=== PATIENT | female | born 1950 | race American Indian/Alaskan Native ===

== ENCOUNTER 2018-12-30 16:56 | Emergency (ER) | payer OTHER ==
[2018-12-30 17:07] VITALS: BP 178/76
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
[2018-12-30] MEDS ORDERED: NORCO 5/325 PO ONE (17:56)
[2018-12-30] MEDS ORDERED: BOOSTRIX IM ONE (17:56)
--- NOTE | 2018-12-30 18:13 | Cat Scan Report ---
PROCEDURE: CT HEAD/BRAIN WO CON TECHNIQUE: Axial helical imaging through the skull base to the vertex. HISTORY: head/facial pain COMPARISONS: CT face also performed today FINDINGS: There is no evidence of an acute intracranial process, intracranial hemorrhage or mass effect. The ventricles are normal size. There is atherosclerotic vascular calcification of the internal carotid arteries bilaterally and left vertebral artery at the skull base. The visualized portions of the orbits, paranasal and mastoid sinuses are unremarkable. The bony structures are unremarkable. IMPRESSION: 1. No evidence of an acute intracranial process, intracranial hemorrhage or mass effect. This document is electronically signed by Catrina Gomez MD., December 30 2018 06:11:15 PM ET
--- NOTE | 2018-12-30 18:18 | Cat Scan Report ---
PROCEDURE: CT FACIAL BONES WO CON TECHNIQUE: Axial helical imaging through the face with sagittal and coronal reformatted images obtain ed. HISTORY: FALL COMPARISONS: Head CT also performed today FINDINGS: There is no evidence of fracture. The paranasal and mastoid sinuses are unremarkable. The nasal septum is midline. The orbital contents are unremarkable. There is atherosclerotic vascular calcification of the carotid bifurcation bilaterally. IMPRESSION: 1. No evidence of facial fracture. 2. Atherosclerotic vascular calcification carotid bifurcation bilaterally. This document is electronically signed by Catrina Gomez MD., December 30 2018 06:16:28 PM ET
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
== END 2018-12-30 19:40 | disposition home or self-care (01) ==
LOC: ED 16:56
DX: S01.511A Laceration without foreign body of lip, initial encounter (principal); I10 Essential (primary) hypertension; E11.9 Type 2 diabetes mellitus without complications; W01.118A Fall on same level from slipping, tripping and stumbling with subsequent striking against other sharp object, initial encounter; Y93.89 Activity, other specified; Y92.89 Other specified places as the place of occurrence of the external cause; Y99.8 Other external cause status
CPT/HCPCS: 70450; 70486; 90471; 90715

== ENCOUNTER 2021-03-05 08:35 | Emergency (ER) | payer MEDICARE, OTHER ==
[2021-03-05 09:04] LABS: Basophils # (Auto) 0.1 K/mm3 (0.0-0.1); Basophils % (Auto) 1.3 % (0.0-1.8); Eosinophils # (Auto) 0.3 K/mm3 (0.0-0.4); Eosinophils % (Auto) 3.8 % (0.0-4.3); Hematocrit 35.1 % (30.3-42.9); Hemoglobin 11.6 gm/dl (10.1-14.3); Lymphocytes % (Auto) 23.5 % (13.4-35.0); Mean Corpuscular HGB Conc 33 % (30-34); Mean Corpuscular Volume 84 fl (79-97); Monocytes # (Auto) 1.2 K/mm3 (0.0-0.8); Monocytes % (Auto) 14.4 % (0.0-7.3); Platelet Count 374 K/mm3 (140-440); Red Blood Count 4.16 M/mm3 (3.65-5.03); Red Cell Distribution Width 14.8 % (13.2-15.2)
[2021-03-05 09:28] LABS: Alanine Aminotransferase 15 units/L (7-56); Albumin 3.6 g/dL (3.9-5); BUN/Creatinine Ratio 18; Blood Urea Nitrogen 23 mg/dL (7-17); Calcium 9.6 mg/dL (8.4-10.2); Hemolysis Index 18
--- NOTE | 2021-03-05 09:35 | XRay Report ---
XR chest routine 2V INDICATION / CLINICAL INFORMATION: cp. COMPARISON: 05/07/2012 FINDINGS: SUPPORT DEVICES: None. HEART /PULMONARY VASCULATURE: No significant abnormality. LUNGS / PLEURA: No significant pulmonary or pleural abnormality. No pneumothorax. ADDITIONAL FINDINGS: Moderate multilevel thoracolumbar spondylosis, greatest in the lumbar spine. IMPRESSION: 1. No acute findings. Signer Name: Fran Mallory MD Signed: 03/05/2021 9:30 AM Workstation Name: [id number]
--- NOTE | 2021-03-05 10:42 | Emergency Department Report ---
ED General Adult HPI - General Chief complaint: Chest Pain Stated complaint: COUGH/CHEST PAIN Time Seen by Provider: 03/05/21 10:01 Source: patient Mode of arrival: Ambulatory Limitations: No Limitations - History of Present Illness Initial comments: 70-year-old female, history of CVA, hypertension, diabetes, chronic lower back pain, presents to the ED with cough, chest pain, body aches, congestion, sore throat, diarrhea. Patient states symptoms began 1 week ago. She denies fever, loss of smell or taste. She denies any known contact with anyone who has tested positive for COVID-19. Patient states she has been fully vaccinated against COVID-19. -: week(s) (1) Consistency: constant Improves with: none Worsens with: none Associated Symptoms: chest pain (with cough), cough, headaches, nausea/vomiting. denies: fever/chills, shortness of breath Treatments Prior to Arrival: other (renea zepeda) - Related Data Previous Rx's Medication Instructions Recorded Last Taken Type Acetaminophen/Codeine [Tylenol 1 tab PO Q6H PRN #12 tab 12/30/18 Unknown Rx /Codeine # 3 tab] Chlorhexidine Mouthwash [Peridex] 15 ml MM BID #1 bottle 12/30/18 Unknown Rx Neomycn/Bacitrc/Polymyx/Pramox 1 applicatio TP BID 14 Days #1 tube 12/30/18 Unknown Rx [Neosporin + Pain Relief Oint] cephALEXin [Keflex] 500 mg PO TID 10 Days #30 capsule 12/30/18 Unknown Rx Benzonatate [Tessalon Perles] 100 mg PO Q8HR PRN #20 capsule 03/05/21 Unknown Rx Naproxen [Naprosyn] 500 mg PO BID #20 tablet 03/05/21 Unknown Rx Ondansetron [Zofran Odt] 4 mg PO Q8HR PRN #20 tab.rapdis 03/05/21 Unknown Rx Allergies Allergy/AdvReac Type Severity Reaction Status Date / Time No Known Allergies Allergy Unverified 12/30/18 17:04 ED Review of Systems ROS: Stated complaint: COUGH/CHEST PAIN Other details as noted in HPI Comment: All other systems reviewed and negative Constitutional: denies: chills, fever ENT: congestion, other (Denies loss of smell or taste) Respiratory: cough. denies: shortness of breath Cardiovascular: chest pain Gastrointestinal: nausea, diarrhea. denies: vomiting Musculoskeletal: back pain Neurological: headache ED Past Medical Hx - Past Medical History Hx Hypertension: Yes Hx CVA: Yes (x2, last one Oct 06, 2020) Hx Diabetes: Yes - Social History Smoking Status: Current Every Day Smoker - Medications Home Medications: Home Medications Medication Instructions Recorded Confirmed Last Taken Type Acetaminophen/Codeine [Tylenol 1 tab PO Q6H PRN #12 tab 12/30/18 Unknown Rx /Codeine # 3 tab] Chlorhexidine Mouthwash [Peridex] 15 ml MM BID #1 bottle 12/30/18 Unknown Rx Neomycn/Bacitrc/Polymyx/Pramox 1 applicatio TP BID 14 Days #1 tube 12/30/18 Unknown Rx [Neosporin + Pain Relief Oint] cephALEXin [Keflex] 500 mg PO TID 10 Days #30 capsule 12/30/18 Unknown Rx Benzonatate [Tessalon Perles] 100 mg PO Q8HR PRN #20 capsule 03/05/21 Unknown Rx Naproxen [Naprosyn] 500 mg PO BID #20 tablet 03/05/21 Unknown Rx Ondansetron [Zofran Odt] 4 mg PO Q8HR PRN #20 tab.rapdis 03/05/21 Unknown Rx ED Physical Exam - General Limitations: No Limitations General appearance: alert, in no apparent distress - Head Head exam: Present: atraumatic, normocephalic - Eye Eye exam: Present: normal appearance, EOMI - ENT ENT exam: Present: mucous membranes moist - Neck Neck exam: Present: normal inspection - Respiratory Respiratory exam: Present: normal lung sounds bilaterally, chest wall tenderness. Absent: respiratory distress - Cardiovascular Cardiovascular Exam: Present: regular rate, normal rhythm - GI/Abdominal GI/Abdominal exam: Present: soft. Absent: distended, tenderness - Extremities Exam Extremities exam: Present: normal inspection - Neurological Exam Neurological exam: Present: alert, oriented X3 - Psychiatric Psychiatric exam: Present: normal affect, normal mood - Skin Skin exam: Present: warm, dry, intact, normal color ED Course Vital Signs 03/05/21 03/05/21 08:43 11:12 Temperature 98.5 F Pulse Rate 87 81 Respiratory 18 15 Rate Blood Pressure 156/79 Blood Pressure 159/69 [Right] O2 Sat by Pulse 100 98 Oximetry ED Medical Decision Making - Lab Data Result diagrams: 03/05/21 08:55 03/05/21 08:55 - EKG Data -: EKG Interpreted by Me EKG shows normal: sinus rhythm, axis, intervals, QRS complexes, ST-T waves Rate: normal - EKG Data Interpretation: nonspecific ST-T wave irais - Radiology Data Radiology results: report reviewed, image reviewed - Medical Decision Making 70-year-old female presents to ED with 1 week history of viral illness-like symptoms. Vital signs are stable. Patient reported some chest pain, mostly with coughing, however EKG shows nonspecific changes. Troponin is normal. Chest x-ray is normal. O2 sat are normal. Patient will be discharged at this time. Outpatient follow-up advised. Return precautions given. - Differential Diagnosis Pneumonia, viral illness, COVID-19 Critical care attestation.: If time is entered above; I have spent that time in minutes in the direct care of this critically ill patient, excluding procedure time. ED Disposition Clinical Impression: Viral illness Disposition: DC-01 TO HOME OR SELFCARE Is pt being admited?: No Condition: Stable Instructions: Viral Illness, Adult Additional Instructions: Outpatient COVID-19 testing is advised. Prescriptions: Naproxen [Naprosyn] 500 mg PO BID #20 tablet Benzonatate [Tessalon Perles] 100 mg PO Q8HR PRN #20 capsule PRN Reason: Cough Ondansetron [Zofran Odt] 4 mg PO Q8HR PRN #20 tab.rapdis PRN Reason: Vomiting Referrals: PRIMARY CARE, [Primary Care Provider] - 3-5 Days [facility] [Provider Group] - 3-5 Days Time of Disposition: 10:50
--- NOTE | 2021-03-05 10:52 | Electrocardiograph Report ---
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
[2021-03-05 11:12] VITALS: BP 159/69
== END 2021-03-05 11:15 | disposition home or self-care (01) ==
LOC: ED 08:35
DX: B34.9 Viral infection, unspecified (principal); I10 Essential (primary) hypertension; E11.9 Type 2 diabetes mellitus without complications; F17.200 Nicotine dependence, unspecified, uncomplicated; Z79.899 Other long term (current) drug therapy
CPT/HCPCS: 36415; 71046; 80053; 84484; 85025; 93005

== ENCOUNTER 2021-04-16 16:06 | Emergency (ER) | payer MEDICARE, OTHER ==
[2021-04-16 16:31] VITALS: BP 178/73
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
[2021-04-16] MEDS ORDERED: IBUPROFEN 600 MG TAB PO ONE (19:28)
[2021-04-16] MEDS ORDERED: HYDROcodone/ACETAMINOPHEN 5-325 MG TAB PO ONE (19:28)
[2021-04-16] MEDS ORDERED: ONDANSETRON 4 MG ODT TAB PO ONE (19:29)
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
[2021-04-16 20:09] LABS: Basophils # (Auto) 0.1 K/mm3 (0.0-0.1); Basophils % (Auto) 0.4 % (0.0-1.8); Eosinophils # (Auto) 0.2 K/mm3 (0.0-0.4); Hematocrit 36.4 % (30.3-42.9); Hemoglobin 11.8 gm/dl (10.1-14.3); Lymphocytes # (Auto) 2.2 K/mm3 (1.2-5.4); Lymphocytes % (Auto) 19.4 % (13.4-35.0); Mean Corpuscular HGB Conc 32 % (30-34); Mean Corpuscular Volume 82 fl (79-97); Monocytes # (Auto) 1.4 K/mm3 (0.0-0.8); Monocytes % (Auto) 12.3 % (0.0-7.3); Platelet Count 274 K/mm3 (140-440); Red Blood Count 4.45 M/mm3 (3.65-5.03); Red Cell Distribution Width 15.2 % (13.2-15.2)
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
[2021-04-16 20:37] LABS: Calcium 9.8 mg/dL (8.4-10.2)
[2021-04-16] MEDS ORDERED: POTASSIUM CHLORIDE ER 20 MEQ TAB PO ONE (20:40)
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
== END 2021-04-16 22:10 | disposition home or self-care (01) ==
LOC: ED 16:06
DX: S20.219A Contusion of unspecified front wall of thorax, initial encounter (principal); S30.1XXA Contusion of abdominal wall, initial encounter; M62.830 Muscle spasm of back; I10 Essential (primary) hypertension; E11.9 Type 2 diabetes mellitus without complications; F17.200 Nicotine dependence, unspecified, uncomplicated; Z86.73 Personal history of transient ischemic attack (TIA), and cerebral infarction without residual deficits; Z90.49 Acquired absence of other specified parts of digestive tract; Z79.899 Other long term (current) drug therapy; V49.49XA Driver injured in collision with other motor vehicles in traffic accident, initial encounter; W22.10XA Striking against or struck by unspecified automobile airbag, initial encounter; Y93.89 Activity, other specified; Y92.410 Unspecified street and highway as the place of occurrence of the external cause; Y99.8 Other external cause status
CPT/HCPCS: 36415; 70450; 71250; 72040; 72100; 72125; 74177; 80053; 85025; 99285; Q9967; Q0162

== ENCOUNTER 2022-04-26 14:09 | Inpatient (IN) | payer MEDICARE ==
--- NOTE | 2022-04-26 14:12 | Emergency Department Report ---
ED General Adult HPI - General Chief complaint: Altered Mental Status Stated complaint: Where are my keys? Time Seen by Provider: 04/26/22 14:10 Source: patient, EMS (Verbal report received from emergency medical services. EMS documentation not available at time of chart dictation ), RN notes reviewed, old records reviewed Mode of arrival: Stretcher Limitations: Altered Mental Status - History of Present Illness Initial comments: The patient was evaluated in the emergency department for symptoms described in the history of present illness. He/she was evaluated in the context of the global COVID-19 pandemic, which necessitated consideration that the patient might be at risk for infection with the virus that causes COVID-19. Institutional protocols and algorithms that pertain to the evaluation of patients at risk for COVID-19 are in a state of rapid change based on information released by regulatory bodies including the CDC and federal and state organizations. These policies and algorithms were followed during the patient's care in the emergency department. Please note that these policies, procedures and recommendations changed on a rapid basis. This is a 72-year-old female. She presents with alteration in mental status. History obtained from EMS. Apparently as per EMS, the patient had a stroke diagnosed at [facility] for 5 days ago. She was reportedly eating food with a family member earlier on today, when she became unresponsive with left-sided deficits. EMS reports initial Accu-Chek within normal limits and a GCS of 4. They reported to myself that the patient is unresponsive in the field. In the emergency room, the patient has a GCS of 12-13. She is awake but confused, moving 4 extremities, and denies physical pain. She does not know where she is, and she is asking where her keys are. The patient is confused, and therefore not able to describe the qualitative nature of symptoms, exacerbating factors relieving factors or aggravating factors. -: This morning - Related Data Previous Rx's Medication Instructions Recorded Last Taken Type Acetaminophen/Codeine [Tylenol 1 tab PO Q6H PRN #12 tab 12/30/18 Unknown Rx /Codeine # 3 tab] Chlorhexidine Mouthwash [Peridex] 15 ml MM BID #1 bottle 12/30/18 Unknown Rx Neomycn/Bacitrc/Polymyx/Pramox 1 applicatio TP BID 14 Days #1 tube 12/30/18 Unknown Rx [Neosporin + Pain Relief Oint] cephALEXin [Keflex] 500 mg PO TID 10 Days #30 capsule 12/30/18 Unknown Rx Benzonatate [Tessalon Perles] 100 mg PO Q8HR PRN #20 capsule 03/05/21 Unknown Rx Ondansetron [Zofran Odt] 4 mg PO Q8HR PRN #20 tab.rapdis 03/05/21 Unknown Rx Baclofen [Lioresal] 10 mg PO Q12H PRN #20 tab 04/16/21 Unknown Rx Naproxen [Naprosyn TAB] 500 mg PO Q12H PRN #20 tablet 04/16/21 Unknown Rx traMADoL [Ultram] 50 mg PO Q6HR PRN #12 tablet 04/16/21 Unknown Rx Allergies Allergy/AdvReac Type Severity Reaction Status Date / Time No Known Allergies Allergy Verified 04/26/22 14:14 ED Review of Systems ROS: Stated complaint: POSS STROKE Other details as noted in HPI Comment: Unobtainable due to pts medical conditions ED Past Medical Hx - Past Medical History Hx Hypertension: Yes Hx CVA: Yes (x2, last one Oct 06, 2020) Hx Diabetes: Yes Additional medical history: RETINA - Surgical History Hx Cholecystectomy: Yes - Social History Smoking Status: Current Some Day Smoker Substance Use Type: None - Medications Home Medications: Home Medications Medication Instructions Recorded Confirmed Last Taken Type Acetaminophen/Codeine [Tylenol 1 tab PO Q6H PRN #12 tab 12/30/18 Unknown Rx /Codeine # 3 tab] Chlorhexidine Mouthwash [Peridex] 15 ml MM BID #1 bottle 12/30/18 Unknown Rx Neomycn/Bacitrc/Polymyx/Pramox 1 applicatio TP BID 14 Days #1 tube 12/30/18 Unknown Rx [Neosporin + Pain Relief Oint] cephALEXin [Keflex] 500 mg PO TID 10 Days #30 capsule 12/30/18 Unknown Rx Benzonatate [Tessalon Perles] 100 mg PO Q8HR PRN #20 capsule 03/05/21 Unknown Rx Ondansetron [Zofran Odt] 4 mg PO Q8HR PRN #20 tab.rapdis 03/05/21 Unknown Rx Baclofen [Lioresal] 10 mg PO Q12H PRN #20 tab 04/16/21 Unknown Rx Naproxen [Naprosyn TAB] 500 mg PO Q12H PRN #20 tablet 04/16/21 Unknown Rx traMADoL [Ultram] 50 mg PO Q6HR PRN #12 tablet 04/16/21 Unknown Rx ED Physical Exam - General Limitations: Altered Mental Status General appearance: anxious, obese - Head Head exam: Present: atraumatic, normocephalic - Eye Eye exam: Present: normal appearance, EOMI. Absent: nystagmus - ENT ENT exam: Present: normal exam, normal orophraynx, mucous membranes moist, normal external ear exam - Neck Neck exam: Present: normal inspection, full ROM. Absent: tenderness, meningismus - Respiratory Respiratory exam: Present: normal lung sounds bilaterally. Absent: respiratory distress, wheezes, rales, rhonchi, stridor, decreased breath sounds - Cardiovascular Cardiovascular Exam: Present: regular rate, normal rhythm, normal heart sounds. Absent: bradycardia, tachycardia, irregular rhythm, systolic murmur, diastolic murmur, rubs, gallop - GI/Abdominal GI/Abdominal exam: Present: soft. Absent: distended, tenderness, guarding, rebound, rigid, pulsatile mass - Extremities Exam Extremities exam: Present: normal inspection, full ROM, other (2+ pulses noted in the bilateral upper and lower extremities. There is no palpable cord. negative Homans sign. Muscular compartments are soft. The pelvis is stable.). Absent: pedal edema, calf tenderness - Back Exam Back exam: Present: normal inspection. Absent: tenderness, CVA tenderness (R), CVA tenderness (L), paraspinal tenderness, vertebral tenderness - Neurological Exam Neurological exam: Present: altered, other (There is no facial droop. The tongue is midline. EOMI. 5 out of 5 strength in 4 extremities.) - Psychiatric Psychiatric exam: Present: agitated, anxious - Skin Skin exam: Present: warm, dry, intact, normal color. Absent: rash ED Course Vital Signs 04/26/22 04/26/22 04/26/22 14:44 14:45 14:52 Temperature 97.7 F Pulse Rate 66 67 Respiratory 13 15 14 Rate Blood Pressure Blood Pressure 122/58 [Right] O2 Sat by Pulse 99 Oximetry 04/26/22 04/26/22 04/26/22 14:55 15:01 15:15 Temperature Pulse Rate 60 63 Respiratory 14 13 13 Rate Blood Pressure 122/58 112/58 Blood Pressure [Right] O2 Sat by Pulse 100 100 100 Oximetry 04/26/22 04/26/22 04/26/22 15:31 15:45 16:01 Temperature Pulse Rate 59 L 58 L 60 Respiratory 14 13 14 Rate Blood Pressure 121/62 121/62 119/62 Blood Pressure [Right] O2 Sat by Pulse 100 98 100 Oximetry 04/26/22 04/26/22 04/26/22 16:15 16:31 16:45 Temperature Pulse Rate 59 L 60 59 L Respiratory 12 13 12 Rate Blood Pressure 123/61 128/72 128/72 Blood Pressure [Right] O2 Sat by Pulse 100 100 100 Oximetry 04/26/22 04/26/22 04/26/22 17:01 17:15 17:31 Temperature Pulse Rate 57 L 59 L 62 Respiratory 11 L 13 13 Rate Blood Pressure 131/65 136/68 136/68 Blood Pressure [Right] O2 Sat by Pulse 100 100 100 Oximetry - Reevaluation(s) Reevaluation #1: 04/26/22 15:18 Differential diagnosis, including but not limited to: Stroke, TIA, transient global amnesia, toxic encephalopathy, metabolic encephalopathy, pneumonia, UTI, electrolyte derangement, thyroid derangement, drug abuse, conversion disorder Assessment and plan: 72-year-old female with reported being unresponsive with initial GCS of 4, who is now awake, breathing spontaneously, moving 4 extremities, but confused. She is not a tPA candidate given dramatic improvement in symptoms, as well as report of stroke a few days ago. Her examination is not suggestive of a large vessel occlusion. CT scan of the brain is obtained, we do not appreciate a bleed. Awaiting results of laboratory studies, x-ray of the chest, and urinalysis. Holding orders initiated, as needed Narcan ordered. Nursing team reports to myself that the patient is having episodes of intermittent fluctuations of consciousness, as well as asking nonsensical questions, such as where her belongings are. Patient is seen in conjunction with stroke neurology, Dr. York, who agrees with the plan of care. Currently awaiting laboratory studies, should family arrive, we will discuss with family, and attempt to obtain additional collateral information 04/26/22 17:05 The patient is sleeping comfortably. Comprehensive metabolic panel shows multiple derangements. Suspect laboratory error. Have requested repeat laboratory draw. No response to Narcan. Patient resting comfortably and protecting airway 04/26/22 17:54 Patient breathing spontaneously. Repeat CMP nonactionable. Admitted to Dr. Delgado's medical service for encephalopathy. ED Medical Decision Making - Lab Data Result diagrams: 04/26/22 14:53 04/26/22 16:50 Vital Signs - 24 hr 04/26/22 04/26/22 14:52 14:55 Temperature 97.7 F Pulse Rate 67 Respiratory 14 14 Rate Blood Pressure 122/58 [Right] O2 Sat by Pulse 99 100 Oximetry Lab Results 04/26/22 04/26/22 04/26/22 Range/Units 14:11 14:53 14:53 WBC 8.2 (4.5-11.0) K/mm3 RBC 4.50 (3.65-5.03) M/mm3 Hgb 12.5 (10.1-14.3) gm/dl Hct 38.8 (30.3-42.9) % MCV 86 (79-97) fl MCH 28 (28-32) pg MCHC 32 (30-34) % RDW 14.4 (13.2-15.2) % Plt Count 322 (140-440) K/mm3 Lymph % (Auto) 23.7 (13.4-35.0) % Motley % (Auto) 9.9 H (0.0-7.3) % Eos % (Auto) 2.0 (0.0-4.3) % Baso % (Auto) 0.7 (0.0-1.8) % Lymph # (Auto) 1.9 (1.2-5.4) K/mm3 Motley # (Auto) 0.8 (0.0-0.8) K/mm3 Eos # (Auto) 0.2 (0.0-0.4) K/mm3 Baso # (Auto) 0.1 (0.0-0.1) K/mm3 Seg Neutrophils % 63.7 (40.0-70.0) % Seg Neutrophils # 5.2 (1.8-7.7) K/mm3 PT 13.3 (12.2-14.9) Sec. INR 0.92 (0.87-1.13) APTT 29.2 (24.2-36.6) Sec. Sodium (137-145) mmol/L Potassium (3.6-5.0) mmol/L Chloride (98-107) mmol/L Carbon Dioxide (22-30) mmol/L Anion Gap mmol/L BUN (7-17) mg/dL Creatinine (0.6-1.2) mg/dL Estimated GFR ml/min BUN/Creatinine Ratio % Glucose (65-100) mg/dL POC Glucose 227 H (70-105) mg/dL Lactic Acid (0.7-2.0) mmol/L Calcium (8.4-10.2) mg/dL Total Bilirubin (0.1-1.2) mg/dL AST (5-40) units/L ALT (7-56) units/L Alkaline Phosphatase (35-129) units/L Ammonia (25-60) umol/L Total Creatine Kinase Troponin T (0.00-0.029) ng/mL Total Protein (6.3-8.2) g/dL Albumin (3.9-5) g/dL Albumin/Globulin Ratio % TSH (0.270-4.200) mlU/mL Urine Color (Yellow) Urine Turbidity (Clear) Urine pH (5.0-7.0) Ur Specific Hunker (1.003-1.030) Urine Protein (Negative) mg/dL Urine Glucose (UA) (Negative) mg/dL Urine Ketones (Negative) mg/dL Urine Blood (Negative) Urine Nitrite (Negative) Urine Bilirubin (Negative) Urine Urobilinogen (<2.0) mg/dL Ur Leukocyte Esterase (Negative) Urine WBC (Auto) (0.0-6.0) /HPF Urine RBC (Auto) (0.0-6.0) /HPF Salicylates (2.8-20.0) mg/dL Urine Opiates Screen Urine Methadone Screen Acetaminophen (10.0-30.0) ug/mL Ur Barbiturates Screen Ur Phencyclidine Scrn Ur Amphetamines Screen U Benzodiazepines Scrn Urine Cocaine Screen Plasma/Serum Alcohol (0-0.07) % 04/26/22 04/26/22 04/26/22 Range/Units 14:53 14:53 14:53 WBC (4.5-11.0) K/mm3 RBC (3.65-5.03) M/mm3 Hgb (10.1-14.3) gm/dl Hct (30.3-42.9) % MCV (79-97) fl MCH (28-32) pg MCHC (30-34) % RDW (13.2-15.2) % Plt Count (140-440) K/mm3 Lymph % (Auto) (13.4-35.0) % Motley % (Auto) (0.0-7.3) % Eos % (Auto) (0.0-4.3) % Baso % (Auto) (0.0-1.8) % Lymph # (Auto) (1.2-5.4) K/mm3 Motley # (Auto) (0.0-0.8) K/mm3 Eos # (Auto) (0.0-0.4) K/mm3 Baso # (Auto) (0.0-0.1) K/mm3 Seg Neutrophils % (40.0-70.0) % Seg Neutrophils # (1.8-7.7) K/mm3 PT (12.2-14.9) Sec. INR (0.87-1.13) APTT (24.2-36.6) Sec. Sodium 80 L* (137-145) mmol/L Potassium 1.5 L* (3.6-5.0) mmol/L Chloride 60.0 L (98-107) mmol/L Carbon Dioxide 18 L (22-30) mmol/L Anion Gap 4 mmol/L BUN 27 H (7-17) mg/dL Creatinine 1.2 (0.6-1.2) mg/dL Estimated GFR 54 ml/min BUN/Creatinine Ratio 23 % Glucose 173 H (65-100) mg/dL POC Glucose (70-105) mg/dL Lactic Acid 1.60 (0.7-2.0) mmol/L Calcium 9.6 (8.4-10.2) mg/dL Total Bilirubin 0.30 (0.1-1.2) mg/dL AST 19 (5-40) units/L ALT < 5 L (7-56) units/L Alkaline Phosphatase < 5 L (35-129) units/L Ammonia 25.0 (25-60) umol/L Total Creatine Kinase TNR Troponin T < 0.010 (0.00-0.029) ng/mL Total Protein 7.3 (6.3-8.2) g/dL Albumin < 0.2 L (3.9-5) g/dL Albumin/Globulin Ratio 0.0 % TSH (0.270-4.200) mlU/mL Urine Color (Yellow) Urine Turbidity (Clear) Urine pH (5.0-7.0) Ur Specific Hunker (1.003-1.030) Urine Protein (Negative) mg/dL Urine Glucose (UA) (Negative) mg/dL Urine Ketones (Negative) mg/dL Urine Blood (Negative) Urine Nitrite (Negative) Urine Bilirubin (Negative) Urine Urobilinogen (<2.0) mg/dL Ur Leukocyte Esterase (Negative) Urine WBC (Auto) (0.0-6.0) /HPF Urine RBC (Auto) (0.0-6.0) /HPF Salicylates (2.8-20.0) mg/dL Urine Opiates Screen Urine Methadone Screen Acetaminophen (10.0-30.0) ug/mL Ur Barbiturates Screen Ur Phencyclidine Scrn Ur Amphetamines Screen U Benzodiazepines Scrn Urine Cocaine Screen Plasma/Serum Alcohol (0-0.07) % 04/26/22 04/26/22 04/26/22 Range/Units 14:53 14:53 14:53 WBC (4.5-11.0) K/mm3 RBC (3.65-5.03) M/mm3 Hgb (10.1-14.3) gm/dl Hct (30.3-42.9) % MCV (79-97) fl MCH (28-32) pg MCHC (30-34) % RDW (13.2-15.2) % Plt Count (140-440) K/mm3 Lymph % (Auto) (13.4-35.0) % Motley % (Auto) (0.0-7.3) % Eos % (Auto) (0.0-4.3) % Baso % (Auto) (0.0-1.8) % Lymph # (Auto) (1.2-5.4) K/mm3 Motley # (Auto) (0.0-0.8) K/mm3 Eos # (Auto) (0.0-0.4) K/mm3 Baso # (Auto) (0.0-0.1) K/mm3 Seg Neutrophils % (40.0-70.0) % Seg Neutrophils # (1.8-7.7) K/mm3 PT (12.2-14.9) Sec. INR (0.87-1.13) APTT (24.2-36.6) Sec. Sodium (137-145) mmol/L Potassium (3.6-5.0) mmol/L Chloride (98-107) mmol/L Carbon Dioxide (22-30) mmol/L Anion Gap mmol/L BUN (7-17) mg/dL Creatinine (0.6-1.2) mg/dL Estimated GFR ml/min BUN/Creatinine Ratio % Glucose (65-100) mg/dL POC Glucose (70-105) mg/dL Lactic Acid (0.7-2.0) mmol/L Calcium (8.4-10.2) mg/dL Total Bilirubin (0.1-1.2) mg/dL AST (5-40) units/L ALT (7-56) units/L Alkaline Phosphatase (35-129) units/L Ammonia (25-60) umol/L Total Creatine Kinase Troponin T (0.00-0.029) ng/mL Total Protein (6.3-8.2) g/dL Albumin (3.9-5) g/dL Albumin/Globulin Ratio % TSH 4.370 H (0.270-4.200) mlU/mL Urine Color (Yellow) Urine Turbidity (Clear) Urine pH (5.0-7.0) Ur Specific Hunker (1.003-1.030) Urine Protein (Negative) mg/dL Urine Glucose (UA) (Negative) mg/dL Urine Ketones (Negative) mg/dL Urine Blood (Negative) Urine Nitrite (Negative) Urine Bilirubin (Negative) Urine Urobilinogen (<2.0) mg/dL Ur Leukocyte Esterase (Negative) Urine WBC (Auto) (0.0-6.0) /HPF Urine RBC (Auto) (0.0-6.0) /HPF Salicylates < 0.3 L (2.8-20.0) mg/dL Urine Opiates Screen Urine Methadone Screen Acetaminophen 5.0 L (10.0-30.0) ug/mL Ur Barbiturates Screen Ur Phencyclidine Scrn Ur Amphetamines Screen U Benzodiazepines Scrn Urine Cocaine Screen Plasma/Serum Alcohol (0-0.07) % 0704/26/22 04/26/22 Range/Units 14:53 16:41 16:41 WBC (4.5-11.0) K/mm3 RBC (3.65-5.03) M/mm3 Hgb (10.1-14.3) gm/dl Hct (30.3-42.9) % MCV (79-97) fl MCH (28-32) pg MCHC (30-34) % RDW (13.2-15.2) % Plt Count (140-440) K/mm3 Lymph % (Auto) (13.4-35.0) % Motley % (Auto) (0.0-7.3) % Eos % (Auto) (0.0-4.3) % Baso % (Auto) (0.0-1.8) % Lymph # (Auto) (1.2-5.4) K/mm3 Motley # (Auto) (0.0-0.8) K/mm3 Eos # (Auto) (0.0-0.4) K/mm3 Baso # (Auto) (0.0-0.1) K/mm3 Seg Neutrophils % (40.0-70.0) % Seg Neutrophils # (1.8-7.7) K/mm3 PT (12.2-14.9) Sec. INR (0.87-1.13) APTT (24.2-36.6) Sec. Sodium (137-145) mmol/L Potassium (3.6-5.0) mmol/L Chloride (98-107) mmol/L Carbon Dioxide (22-30) mmol/L Anion Gap mmol/L BUN (7-17) mg/dL Creatinine (0.6-1.2) mg/dL Estimated GFR ml/min BUN/Creatinine Ratio % Glucose (65-100) mg/dL POC Glucose (70-105) mg/dL Lactic Acid (0.7-2.0) mmol/L Calcium (8.4-10.2) mg/dL Total Bilirubin (0.1-1.2) mg/dL AST (5-40) units/L ALT (7-56) units/L Alkaline Phosphatase (35-129) units/L Ammonia (25-60) umol/L Total Creatine Kinase Troponin T (0.00-0.029) ng/mL Total Protein (6.3-8.2) g/dL Albumin (3.9-5) g/dL Albumin/Globulin Ratio % TSH (0.270-4.200) mlU/mL Urine Color Yellow (Yellow) Urine Turbidity Slightly-cloudy (Clear) Urine pH 5.0 (5.0-7.0) Ur Specific Hunker 1.030 (1.003-1.030) Urine Protein 100 mg/dl (Negative) mg/dL Urine Glucose (UA) Neg (Negative) mg/dL Urine Ketones Neg (Negative) mg/dL Urine Blood Neg (Negative) Urine Nitrite Neg (Negative) Urine Bilirubin Mod (Negative) Urine Urobilinogen 2.0 (<2.0) mg/dL Ur Leukocyte Esterase Neg (Negative) Urine WBC (Auto) < 1.0 (0.0-6.0) /HPF Urine RBC (Auto) < 1.0 (0.0-6.0) /HPF Salicylates (2.8-20.0) mg/dL Urine Opiates Screen Negative Urine Methadone Screen Negative Acetaminophen (10.0-30.0) ug/mL Ur Barbiturates Screen Negative Ur Phencyclidine Scrn Negative Ur Amphetamines Screen Negative U Benzodiazepines Scrn Negative Urine Cocaine Screen Negative Plasma/Serum Alcohol < 0.01 (0-0.07) % 04/26/22 Range/Units 16:50 WBC (4.5-11.0) K/mm3 RBC (3.65-5.03) M/mm3 Hgb (10.1-14.3) gm/dl Hct (30.3-42.9) % MCV (79-97) fl MCH (28-32) pg MCHC (30-34) % RDW (13.2-15.2) % Plt Count (140-440) K/mm3 Lymph % (Auto) (13.4-35.0) % Motley % (Auto) (0.0-7.3) % Eos % (Auto) (0.0-4.3) % Baso % (Auto) (0.0-1.8) % Lymph # (Auto) (1.2-5.4) K/mm3 Motley # (Auto) (0.0-0.8) K/mm3 Eos # (Auto) (0.0-0.4) K/mm3 Baso # (Auto) (0.0-0.1) K/mm3 Seg Neutrophils % (40.0-70.0) % Seg Neutrophils # (1.8-7.7) K/mm3 PT (12.2-14.9) Sec. INR (0.87-1.13) APTT (24.2-36.6) Sec. Sodium 139 D (137-145) mmol/L Potassium 4.2 D (3.6-5.0) mmol/L Chloride 105.1 (98-107) mmol/L Carbon Dioxide 24 (22-30) mmol/L Anion Gap 14 mmol/L BUN 28 H (7-17) mg/dL Creatinine 1.2 (0.6-1.2) mg/dL Estimated GFR 54 ml/min BUN/Creatinine Ratio 23 % Glucose 128 H (65-100) mg/dL POC Glucose (70-105) mg/dL Lactic Acid (0.7-2.0) mmol/L Calcium 9.9 (8.4-10.2) mg/dL Total Bilirubin 0.30 (0.1-1.2) mg/dL AST 17 (5-40) units/L ALT 16 (7-56) units/L Alkaline Phosphatase 101 (35-129) units/L Ammonia (25-60) umol/L Total Creatine Kinase Troponin T (0.00-0.029) ng/mL Total Protein 7.1 (6.3-8.2) g/dL Albumin 3.9 (3.9-5) g/dL Albumin/Globulin Ratio 1.2 % TSH (0.270-4.200) mlU/mL Urine Color (Yellow) Urine Turbidity (Clear) Urine pH (5.0-7.0) Ur Specific Hunker (1.003-1.030) Urine Protein (Negative) mg/dL Urine Glucose (UA) (Negative) mg/dL Urine Ketones (Negative) mg/dL Urine Blood (Negative) Urine Nitrite (Negative) Urine Bilirubin (Negative) Urine Urobilinogen (<2.0) mg/dL Ur Leukocyte Esterase (Negative) Urine WBC (Auto) (0.0-6.0) /HPF Urine RBC (Auto) (0.0-6.0) /HPF Salicylates (2.8-20.0) mg/dL Urine Opiates Screen Urine Methadone Screen Acetaminophen (10.0-30.0) ug/mL Ur Barbiturates Screen Ur Phencyclidine Scrn Ur Amphetamines Screen U Benzodiazepines Scrn Urine Cocaine Screen Plasma/Serum Alcohol (0-0.07) % - EKG Data -: EKG Interpreted by Me EKG shows normal: sinus rhythm Rate: normal - EKG Data 04/26/22 15:17 EKG is interpreted by myself at 14: 47 Sinus rhythm, rate 65 bpm. Normal axis, normal P wave axis, Q waves noted in inferior leads, poor R wave progression, QTC 4 6 6 ms. This is an abnormal EKG. There is no endorsement of chest pain. The EKG is not a STEMI - Radiology Data Radiology results: pending, report reviewed, image reviewed NONENHANCED CT SCAN OF THE HEAD: INDICATION / CLINICAL INFORMATION: 72 years Female; Altered Mental Status. TECHNIQUE: Routine CT head without contrast. All CT scans at this location are performed using CT dose reduction for ALARA by means of automated exposure control. COMPARISON: CT scan of the head from 03/30/2021 FINDINGS: BRAIN / INTRACRANIAL CONTENTS: No acute hemorrhage, mass effect, midline shift, hydrocephalus, or acute, large territorial infarct. Since the CT scan from 10 days ago, no attenuation lesion is now seen in the left side of genu of corpus callosum extending towards the left corpus striatum. . Suggestion of mild mass effect over the anterior left frontal horn. No ischemic lesions involving the corpus callosum are rare because of 2. Source of blood supply, this is probably Chronic lacune along the body of left caudate. Normal brain volume and ventricular/sulcal size for age. No significant white matter abnormality. CRANIOCERVICAL JUNCTION: No significant abnormality. ORBITS: No significant abnormality of visualized orbits. SINUSES / MASTOIDS: No significant abnormality of the visualized paranasal sinuses or mastoid air cells. ADDITIONAL FINDINGS: None. IMPRESSION: No space taking lesion or focal area of vasogenic edema; since the last CT scan from 10 days ago low-attenuation lesion in the left side of genu of corpus callosum with mild mass effect over the left lateral ventricle; 6 subacute ischemia Signer Name: Elliott Lopez MD Signed: 04/26/2022 2:18 PM Workstation Name: [id number] CHEST 1 VIEW 04/26/2022 2:19 PM INDICATION / CLINICAL INFORMATION: Altered Mental Status. COMPARISON: 2 views of the chest from 03/05/2021. FINDINGS: SUPPORT DEVICES: None. HEART / MEDIASTINUM: No significant abnormality. LUNGS / PLEURA: No significant pulmonary abnormality. No significant pleural effusion. No pneumothorax. ADDITIONAL FINDINGS: No significant additional findings. IMPRESSION: 1. No acute abnormality of the chest. Signer Name: Adelfo Overton MD Signed: 04/26/2022 2:26 PM Workstation Name: [id number] Critical care attestation.: If time is entered above; I have spent that time in minutes in the direct care of this critically ill patient, excluding procedure time. ED Disposition Clinical Impression: Acute encephalopathy Disposition: 09 ADMITTED INPATIENT Is pt being admited?: Yes Does the pt Need Aspirin: No Condition: Fair Referrals: PRIMARY CARE, [Primary Care Provider] - 3-5 Days
--- NOTE | 2022-04-26 14:56 | Consultation ---
History of Present Illness History of present illness: [facility] Consult Note # Demographics Consult Type: Acute Stroke Level 1 (0-4.5 hrs) Patient Location: Emergency Room First Name: Hillary Last Name: Luis Date of : 1950 Age: 72 Gender: Female Facility: [facility] Time of Initial Page (): 04/26/2022, 13:57 Time of Return Call ( Time): 04/26/2022, 14:03 # HPI Chief Complaint: altered mental state History: 72F presents with unresponsiveness. Found sitting down with head on table. Was at [facility] 4-5 days ago with a stroke; unclear if hemorrhagic or ischemic. Noted to have left-facial droop and weakness, was unresponsive to verbal stimulation. On arrival to ED, symptoms mostly resolved. Last Known Normal: I have collected independent history specific to time last normal or last known well. We have collaborated with the provider and at this time, we have the most current timeline with the information that is available. 1330 # Scores Time of exam and NIHSS (): 04/26/2022, 14:06 Level of Consciousness 1a: [0] = Alert; keenly responsive LOC Questions 1b: [0] = Answers both questions correctly LOC Commands 1c: [0] = Performs both tasks correctly Best Gaze 2: [0] = Normal Visual 3: [0] = No visual loss Facial Palsy 4: [1] = Minor paralysis Motor Arm Left 5a: [0] = No drift Motor Arm Right 5b: [0] = No drift Motor Leg Left 6a: [0] = No drift Motor Leg Right 6b: [1] = Drift Limb Ataxia 7: [0] = Absent Sensory 8: [0] = Normal Best Language 9: [0] = No aphasia Dysarthria 10: [1] = [id number] dysarthria Extinction and Inattention 11: [0] = No abnormality NIHSS Total: 3 # Data Time Head CT personally read by me ( Time): 04/26/2022, 14:[address]: no bleed preliminarily reviewed by me, please refer to radiology read for official reading # Assessment Impression: Ischemic Stroke (Subacute) waxing/waning symptoms in setting of recent stroke # Plan Thrombolytic/Intervention: NOT IV Thrombolysis or IA Intervention candidate Thrombolytic Exclusion: > 4.5 hours Intraarterial Exclusion: non-disabling Target Blood Pressure: SBP < 180 DBP < 105 Medication: Continue medications from recent stroke admission Other: I have discussed my recommendations with the referring provider Additional Recommendations: Clarify plan from recent [facility] stroke admission Disposition: admit # Logistics Telemedicine: Interactive 2 way audio and visual telecommunication technology was utilized during this visit Electronically signed at 04/26/2022 14:56 (Eastern Time) by Sea York MD Medications and Allergies Allergies Allergy/AdvReac Type Severity Reaction Status Date / Time No Known Allergies Allergy Verified 04/26/22 14:14 Home Medications Medication Instructions Recorded Confirmed Last Taken Type Acetaminophen/Codeine [Tylenol 1 tab PO Q6H PRN #12 tab 12/30/18 Unknown Rx /Codeine # 3 tab] Chlorhexidine Mouthwash [Peridex] 15 ml MM BID #1 bottle 12/30/18 Unknown Rx Neomycn/Bacitrc/Polymyx/Pramox 1 applicatio TP BID 14 Days #1 tube 12/30/18 Unknown Rx [Neosporin + Pain Relief Oint] cephALEXin [Keflex] 500 mg PO TID 10 Days #30 capsule 12/30/18 Unknown Rx Benzonatate [Tessalon Perles] 100 mg PO Q8HR PRN #20 capsule 03/05/21 Unknown Rx Ondansetron [Zofran Odt] 4 mg PO Q8HR PRN #20 tab.rapdis 03/05/21 Unknown Rx Baclofen [Lioresal] 10 mg PO Q12H PRN #20 tab 04/16/21 Unknown Rx Naproxen [Naprosyn TAB] 500 mg PO Q12H PRN #20 tablet 04/16/21 Unknown Rx traMADoL [Ultram] 50 mg PO Q6HR PRN #12 tablet 04/16/21 Unknown Rx Physical Examination - Vital Signs Vital Signs: Vital Signs Temp Pulse Resp BP Pulse Ox 97.7 F 67 14 122/58 99 04/26/22 14:52 04/26/22 14:52 04/26/22 14:52 04/26/22 14:52 04/26/22 14:52 Results - Laboratory Findings Abnormal Lab Findings: Abnormal Labs 04/26/22 14:11 POC Glucose 227 H
[2022-04-26] MEDS ORDERED: LORazepam 2 MG/ML VIAL IM PRN (15:03)
[2022-04-26] MEDS ORDERED: NALOXONE 0.4 MG/1 ML INJ IV ONE (15:03)
[2022-04-26] MEDS ORDERED: NALOXONE 0.4 MG/1 ML INJ IV PRN (15:03)
[2022-04-26] MEDS ORDERED: HALOPERIDOL LACTATE 5 MG/1 ML INJ IM PRN (15:03)
--- NOTE | 2022-04-26 15:23 | Cat Scan Report ---
NONENHANCED CT SCAN OF THE HEAD: INDICATION / CLINICAL INFORMATION: 72 years Female; Altered Mental Status. TECHNIQUE: Routine CT head without contrast. All CT scans at this location are performed using CT dos e reduction for ALARA by means of automated exposure control. COMPARISON: CT scan of the head from 03/30/2021 FINDINGS: BRAIN / INTRACRANIAL CONTENTS: No acute hemorrhage, mass effect, midline shift, hydrocephalus, or acu te, large territorial infarct. Since the CT scan from 10 days ago, no attenuation lesion is now seen in the left side of genu of corpus callosum extending towards the left corpus striatum. . Suggestion of mild mass effect over the anterior left frontal horn. No ischemic lesions involving the corpus ziggy losum are rare because of 2. Source of blood supply, this is probably Chronic lacune along the body of left caudate. Normal brain volume and ventricular/sulcal size for ag e. No significant white matter abnormality. CRANIOCERVICAL JUNCTION: No significant abnormality. ORBITS: No significant abnormality of visualized orbits. SINUSES / MASTOIDS: No significant abnormality of the visualized paranasal sinuses or mastoid air tu ls. ADDITIONAL FINDINGS: None. IMPRESSION: No space taking lesion or focal area of vasogenic edema; since the last CT scan from 10 days ago low- attenuation lesion in the left side of genu of corpus callosum with mild mass effect over the left la teral ventricle; 6 subacute ischemia Signer Name: Elliott Lopez MD Signed: 04/26/2022 3:18 PM Workstation Name: [id number]
[2022-04-26 15:27] LABS: Basophils # (Auto) 0.1 K/mm3 (0.0-0.1); Basophils % (Auto) 0.7 % (0.0-1.8); Eosinophils # (Auto) 0.2 K/mm3 (0.0-0.4); Hematocrit 38.8 % (30.3-42.9); Hemoglobin 12.5 gm/dl (10.1-14.3); Lymphocytes # (Auto) 1.9 K/mm3 (1.2-5.4); Lymphocytes % (Auto) 23.7 % (13.4-35.0); Mean Corpuscular HGB Conc 32 % (30-34); Mean Corpuscular Volume 86 fl (79-97); Monocytes # (Auto) 0.8 K/mm3 (0.0-0.8); Monocytes % (Auto) 9.9 % (0.0-7.3); Platelet Count 322 K/mm3 (140-440); Red Cell Distribution Width 14.4 % (13.2-15.2)
--- NOTE | 2022-04-26 15:30 | XRay Report ---
CHEST 1 VIEW 04/26/2022 2:19 PM INDICATION / CLINICAL INFORMATION: Altered Mental Status. COMPARISON: 2 views of the chest from 03/05/2021. FINDINGS: SUPPORT DEVICES: None. HEART / MEDIASTINUM: No significant abnormality. LUNGS / PLEURA: No significant pulmonary abnormality. No significant pleural effusion. No pneumothora x. ADDITIONAL FINDINGS: No significant additional findings. IMPRESSION: 1. No acute abnormality of the chest. Signer Name: Adelfo Overton MD Signed: 04/26/2022 3:26 PM Workstation Name: [id number]
[2022-04-26 15:37] LABS: INR 0.92 (0.87-1.13)
[2022-04-26 15:38] LABS: Partial Thromboplastin Time 29.2 Sec. (24.2-36.6)
[2022-04-26 16:34] LABS: BUN/Creatinine Ratio 23; Blood Urea Nitrogen 27 mg/dL (7-17); Calcium 9.6 mg/dL (8.4-10.2); Hemolysis Index 12
[2022-04-26 16:35] LABS: Alanine Aminotransferase < 5 units/L (7-56); Albumin < 0.2 g/dL (3.9-5)
[2022-04-26 17:40] LABS: Bilirubin,Urine MOD (Negative); Blood,Urine NEG (Negative); Color,Urine Yellow (Yellow); RBC,Urine < 1.0 /HPF (0.0-6.0); WBC,Urine < 1.0 /HPF (0.0-6.0)
[2022-04-26 17:48] LABS: Amphetamine Screen,Urine Negative; Benzodiazepines Screen,Urine Negative; Cocaine Screen,Urine Negative; Methadone Screen,Urine Negative; Opiate Screen,Urine Negative
[2022-04-26 17:51] LABS: Albumin 3.9 g/dL (3.9-5); Calcium 9.9 mg/dL (8.4-10.2)
--- NOTE | 2022-04-26 17:54 | History and Physical Report ---
History of Present Illness Chief complaint: She will not wake up History of present illness: 72 YO Female with Vascular Dementia, Cerebral Atherosclerosis, HTN, DM, CVA, Metabolic syndrome, Obesity, Nicotine Dependence presents to ED for evaluation. Patient is lethargic with diminished cognition at the time of my evaluation is unable to provide history. Patient history provided by who is at bedside during exam and interview. As per he and the patient were out eating lunch today when the patient became unresponsive. EMS was notified and upon arrival the patient was found to be in distress and subsequently transported to [facility] for further care and evaluation of the aforementioned symptoms. The patient was treated with Narcan without improvement in symptoms. Patient seen and evaluated emergency department. All lab and imaging studies reviewed. Patient found to have clinical symptoms consistent with CVA. Patient initiated on CVA protocol due to increased risk of worsening symptoms after medical stabilization. No reports of fever, chills, chest pain, palpitation, adductive cough, trauma, recent contact, or known exposure to COVID-19. No prior admission for review. All medication listed at time of admission has been reconciled. Advanced care planning conducted in ED. Patient is lethargic with diminished cognition at the time my evaluation but has a positive gag reflex and is able to protect her airway without difficulty. Past History Past Surgical History: cholecystectomy, Other (eye Surgery) Social history: , smoking. denies: alcohol abuse, prescription drug abuse Family history: diabetes, hypertension Medications and Allergies Allergies Allergy/AdvReac Type Severity Reaction Status Date / Time No Known Allergies Allergy Verified 04/26/22 14:14 Home Medications Medication Instructions Recorded Confirmed Last Taken Type Acetaminophen/Codeine [Tylenol 1 tab PO Q6H PRN #12 tab 12/30/18 Unknown Rx /Codeine # 3 tab] Chlorhexidine Mouthwash [Peridex] 15 ml MM BID #1 bottle 12/30/18 Unknown Rx Neomycn/Bacitrc/Polymyx/Pramox 1 applicatio TP BID 14 Days #1 tube 12/30/18 Unknown Rx [Neosporin + Pain Relief Oint] cephALEXin [Keflex] 500 mg PO TID 10 Days #30 capsule 12/30/18 Unknown Rx Benzonatate [Tessalon Perles] 100 mg PO Q8HR PRN #20 capsule 03/05/21 Unknown Rx Ondansetron [Zofran Odt] 4 mg PO Q8HR PRN #20 tab.rapdis 03/05/21 Unknown Rx Baclofen [Lioresal] 10 mg PO Q12H PRN #20 tab 04/16/21 Unknown Rx Naproxen [Naprosyn TAB] 500 mg PO Q12H PRN #20 tablet 04/16/21 Unknown Rx traMADoL [Ultram] 50 mg PO Q6HR PRN #12 tablet 04/16/21 Unknown Rx Active Meds: Active Medications Haloperidol Lactate (Haloperidol Lactate 5 Mg/1 Ml Inj) 5 mg IM Q6HR PRN PRN Reason: Agitation Lorazepam (Lorazepam 2 Mg/Ml Vial) 2 mg IM Q4HR PRN PRN Reason: Agitation Naloxone HCl (Naloxone 0.4 Mg/1 Ml Inj) 0.1 mg IV Q2MIN PRN PRN Reason: Res Rate </= 8 or 02 SAT < 92% Last Admin: 04/26/22 16:11 Dose: 0.1 mg Review of Systems ROS unobtainable: due to mental status Exam - Constitutional Vitals: Temp Pulse Resp BP Pulse Ox 97.7 F 62 13 136/68 100 04/26/22 14:52 04/26/22 17:31 04/26/22 17:31 04/26/22 17:31 04/26/22 17:31 General appearance: Present: mild distress - EENT Eyes: Present: PERRL ENT: hearing decreased - Neck Neck: Present: supple, normal ROM - Respiratory Respiratory effort: normal Respiratory: bilateral: CTA - Cardiovascular Heart Sounds: Present: S1 & S2. Absent: rub, click - Extremities Extremities: pulses symmetrical, No edema Peripheral Pulses: within normal limits - Abdominal General gastrointestinal: Present: soft, non-tender, non-distended, normal bowel sounds Female genitourinary: Present: normal - Integumentary Integumentary: Present: clear, dry - Musculoskeletal Musculoskeletal: generalized weakness - Psychiatric Psychiatric: no appropriate mood/affect, no intact judgment & insight, no memory intact - Neurologic Neurologic: CNII-XII intact, no gait normal HEART Score - HEART Score Troponin: Troponin T < 0.010 ng/mL (0.00-0.029) 04/26/22 14:53 Results - Labs CBC & Chem 7: 04/26/22 14:53 04/26/22 16:50 Labs: Abnormal lab results 04/26/22 04/26/22 04/26/22 Range/Units 14:11 14:53 14:53 [place] % (Auto) 9.9 H (0.0-7.3) % Sodium 80 L* (137-145) mmol/L Potassium 1.5 L* (3.6-5.0) mmol/L Chloride 60.0 L (98-107) mmol/L Carbon Dioxide 18 L (22-30) mmol/L BUN 27 H (7-17) mg/dL Glucose 173 H (65-100) mg/dL POC Glucose 227 H (70-105) mg/dL ALT < 5 L (7-56) units/L Alkaline Phosphatase < 5 L (35-129) units/L Albumin < 0.2 L (3.9-5) g/dL TSH (0.270-4.200) mlU/mL Salicylates (2.8-20.0) mg/dL Acetaminophen (10.0-30.0) ug/mL 04/26/22 04/26/22 04/26/22 Range/Units 14:53 14:53 14:53 [place] % (Auto) (0.0-7.3) % Sodium (137-145) mmol/L Potassium (3.6-5.0) mmol/L Chloride (98-107) mmol/L Carbon Dioxide (22-30) mmol/L BUN (7-17) mg/dL Glucose (65-100) mg/dL POC Glucose (70-105) mg/dL ALT (7-56) units/L Alkaline Phosphatase (35-129) units/L Albumin (3.9-5) g/dL TSH 4.370 H (0.270-4.200) mlU/mL Salicylates < 0.3 L (2.8-20.0) mg/dL Acetaminophen 5.0 L (10.0-30.0) ug/mL 04/26/22 Range/Units 16:50 [place] % (Auto) (0.0-7.3) % Sodium (137-145) mmol/L Potassium (3.6-5.0) mmol/L Chloride (98-107) mmol/L Carbon Dioxide (22-30) mmol/L BUN 28 H (7-17) mg/dL Glucose 128 H (65-100) mg/dL POC Glucose (70-105) mg/dL ALT (7-56) units/L Alkaline Phosphatase (35-129) units/L Albumin (3.9-5) g/dL TSH (0.270-4.200) mlU/mL Salicylates (2.8-20.0) mg/dL Acetaminophen (10.0-30.0) ug/mL Assessment and Plan - Patient Problems (1) CVA (cerebral vascular accident) Current Visit: Yes Status: Acute Plan to address problem: CVA protocol: CT head, neuro check, seizure precaution, aspiration precaution, fall precautions, echocardiogram, carotid Doppler, thyroid panel, antiplatelet therapy, lipid panel, statin therapy, neurosurgery consulted for reevaluation of CT scan head, physical therapy consulted, outpatient therapy consulted, speech therapy consulted. (2) Metabolic encephalopathy Current Visit: Yes Status: Acute Plan to address problem: CT head, neuro check, seizure precautions, aspiration precautions, fall precautions, supportive care. (3) Acidosis, metabolic Current Visit: Yes Status: Acute Plan to address problem: IV fluid resuscitation therapy, repeat BMP, repeat BMP in AM. (4) Hyponatremia syndrome Current Visit: Yes Status: Acute Plan to address problem: Repeat BMP, IV fluid resuscitation therapy, neuro check, seizure precautions. (5) DVT prophylaxis Current Visit: Yes Status: Acute Plan to address problem: SCD to bilateral lower extremities while in bed (6) Advance care planning Current Visit: Yes Status: Acute Plan to address problem: Disease education conducted, care plan discussed, diagnoses discussed, prognosis discussed, patient is full code. Patient is at bedside and acknowledges understanding and agreed with care plan, +30 minutes. (7) Preventative health care Current Visit: Yes Status: Acute Plan to address problem: Patient has been counseled regarding probable need for fci facility placement if the family is unable to care for patient at home, home safety, outpatient follow-up with primary care physician for all age and risk factor appropriate screening test. +30 minutes.
[2022-04-26 17:55] LABS: Ictotest,Urine Negative (Negative)
[2022-04-26 17:59] LABS: Cannabinoid Screen,Urine Positive
[2022-04-26] MEDS ORDERED: MAGNESIUM HYDROXIDE (MOM) ORAL LIQD UDC PO PRN (18:58)
[2022-04-26] MEDS ORDERED: HYDROmorphone 0.5 MG/0.5 ML INJ IV PRN (18:58)
[2022-04-26] MEDS ORDERED: PROMETHAZINE 25 MG RECT SUPP PR PRN (18:58)
[2022-04-26] MEDS ORDERED: METOCLOPRAMIDE 10 MG TAB PO PRN (18:58)
[2022-04-26] MEDS ORDERED: ACETAMINOPHEN 325 MG TAB PO PRN (18:58)
[2022-04-26] MEDS ORDERED: ONDANSETRON 4 MG/2 ML INJ IV PRN (18:58)
[2022-04-26 20:08] LABS: Bacteria,Urine 1+ /HPF (Negative); Hyaline Casts,Urine 17 /LPF; Mucus,Urine 1+ /HPF
[2022-04-26 20:13] LABS: Free T4 (Free Thyroxine) 1.28 ng/dL (0.76-1.46)
[2022-04-27] MEDS: ASPIRIN 325 MG TAB PO SCH (09:24)
--- NOTE | 2022-04-27 09:55 | Progress Note ---
Assessment and Plan Assessment and plan: 72 YO Female with Vascular Dementia, Cerebral Atherosclerosis, HTN, DM, CVA, Metabolic syndrome, Obesity, Nicotine Dependence presents to ED for evaluation of lethargy with diminished cognition. Patient history provided by who reported that he and his were out eating lunch on the day of admission when the patient became unresponsive. EMS was notified and upon arrival the patient was found to be in distress and subsequently transported to [facility] for further care and evaluation of the aforementioned symptoms. The patient was treated with Narcan without improvement in symptoms. Patient seen and evaluated emergency department. All lab and imaging studies reviewed. Patient found to have clinical symptoms consistent with CVA. Patient initiated on CVA protocol due to increased risk of worsening symptoms after medical stabilization. Acute CVA Acute encephalopathy Hyponatremia. Likely lab error 04/27/2022. CT scan reveals new lesion in the left side of the genu of corpus callosum with mild mass-effect along the anterior wall of the left frontal horn likely subacute ischemia though ischemic lesions in the corpus callosum are very rare because of dual blood supply. I discussed the case with neurosurgeon, Dr. Lyon who recommends MRI with/without contrast. Patient initiated on aspirin and Lipitor on admission. PT/OT/ST History Interval history: No new issues overnight Hospitalist Physical - Constitutional Vitals: Temp Pulse Resp BP Pulse Ox 97.5 F L 61 20 125/58 98 04/26/22 23:11 04/26/22 23:11 04/27/22 01:49 04/26/22 23:11 04/27/22 01:49 General appearance: Present: mild distress - EENT Eyes: Present: PERRL, EOM intact ENT: hearing intact, clear oral mucosa, dentition normal - Neck Neck: Present: supple, normal ROM - Respiratory Respiratory effort: normal Respiratory: bilateral: CTA - Cardiovascular Rhythm: regular Heart Sounds: Present: S1 & S2. Absent: gallop, rub - Extremities Extremities: no ischemia, No edema, Full ROM - Abdominal General gastrointestinal: soft, non-tender, non-distended, normal bowel sounds - Integumentary Integumentary: Present: clear, warm, dry - Neurologic Neurologic: CNII-XII intact, moves all extremities HEART Score - HEART Score Troponin: Troponin T < 0.010 ng/mL (0.00-0.029) 04/26/22 14:53 Results - Labs CBC & Chem 7: 04/26/22 14:53 04/26/22 16:50 Labs: Laboratory Last Values WBC 8.2 K/mm3 (4.5-11.0) 04/26/22 14:53 RBC 4.50 M/mm3 (3.65-5.03) 04/26/22 14:53 Hgb 12.5 gm/dl (10.1-14.3) 04/26/22 14:53 Hct 38.8 % (30.3-42.9) 04/26/22 14:53 MCV 86 fl (79-97) 04/26/22 14:53 MCH 28 pg (28-32) 04/26/22 14:53 MCHC 32 % (30-34) 04/26/22 14:53 RDW 14.4 % (13.2-15.2) 04/26/22 14:53 Plt Count 322 K/mm3 (140-440) 04/26/22 14:53 Lymph % (Auto) 23.7 % (13.4-35.0) 04/26/22 14:53 [place] % (Auto) 9.9 % (0.0-7.3) H 04/26/22 14:53 Eos % (Auto) 2.0 % (0.0-4.3) 04/26/22 14:53 Baso % (Auto) 0.7 % (0.0-1.8) 04/26/22 14:53 Lymph # (Auto) 1.9 K/mm3 (1.2-5.4) 04/26/22 14:53 [place] # (Auto) 0.8 K/mm3 (0.0-0.8) 04/26/22 14:53 Eos # (Auto) 0.2 K/mm3 (0.0-0.4) 04/26/22 14:53 Baso # (Auto) 0.1 K/mm3 (0.0-0.1) 04/26/22 14:53 Seg Neutrophils % 63.7 % (40.0-70.0) 04/26/22 14:53 Seg Neutrophils # 5.2 K/mm3 (1.8-7.7) 04/26/22 14:53 PT 13.3 Sec. (12.2-14.9) 04/26/22 14:53 INR 0.92 (0.87-1.13) 04/26/22 14:53 APTT 29.2 Sec. (24.2-36.6) 04/26/22 14:53 Sodium 139 mmol/L (137-145) D 04/26/22 16:50 Potassium 4.2 mmol/L (3.6-5.0) D 04/26/22 16:50 Chloride 105.1 mmol/L (98-107) 04/26/22 16:50 Carbon Dioxide 24 mmol/L (22-30) 04/26/22 16:50 Anion Gap 14 mmol/L 04/26/22 16:50 BUN 28 mg/dL (7-17) H 04/26/22 16:50 Creatinine 1.2 mg/dL (0.6-1.2) 04/26/22 16:50 Estimated GFR 54 ml/min 04/26/22 16:50 BUN/Creatinine Ratio 23 % 04/26/22 16:50 Glucose 128 mg/dL (65-100) H 04/26/22 16:50 POC Glucose 227 mg/dL (70-105) H 04/26/22 14:11 Lactic Acid 1.60 mmol/L (0.7-2.0) 04/26/22 14:53 Calcium 9.9 mg/dL (8.4-10.2) 04/26/22 16:50 Total Bilirubin 0.30 mg/dL (0.1-1.2) 04/26/22 16:50 AST 17 units/L (5-40) 04/26/22 16:50 ALT 16 units/L (7-56) 04/26/22 16:50 Alkaline Phosphatase 101 units/L (35-129) 04/26/22 16:50 Ammonia 25.0 umol/L (25-60) 04/26/22 14:53 Total Creatine Kinase TNR 04/26/22 14:53 Troponin T < 0.010 ng/mL (0.00-0.029) 04/26/22 14:53 Total Protein 7.1 g/dL (6.3-8.2) 04/26/22 16:50 Albumin 3.9 g/dL (3.9-5) 04/26/22 16:50 Albumin/Globulin Ratio 1.2 % 04/26/22 16:50 TSH 2.270 mlU/mL (0.270-4.200) 04/26/22 19:04 Free T4 1.28 ng/dL (0.76-1.46) 04/26/22 19:04 Urine Color Yellow (Yellow) 04/26/22 16:41 Urine Turbidity Slightly-cloudy (Clear) 04/26/22 16:41 Urine pH 5.0 (5.0-7.0) 04/26/22 16:41 Ur Specific [place] 1.030 (1.003-1.030) 04/26/22 16:41 Urine Protein 100 mg/dl mg/dL (Negative) 04/26/22 16:41 Urine Glucose (UA) Neg mg/dL (Negative) 04/26/22 16:41 Urine Ketones Neg mg/dL (Negative) 04/26/22 16:41 Urine Blood Neg (Negative) 04/26/22 16:41 Urine Nitrite Neg (Negative) 04/26/22 16:41 Urine Bilirubin Mod (Negative) 04/26/22 16:41 Urine Ictotest Negative (Negative) 04/26/22 16:41 Urine Urobilinogen 2.0 mg/dL (<2.0) 04/26/22 16:41 Ur Leukocyte Esterase Neg (Negative) 04/26/22 16:41 Urine WBC (Auto) < 1.0 /HPF (0.0-6.0) 04/26/22 16:41 Urine RBC (Auto) < 1.0 /HPF (0.0-6.0) 04/26/22 16:41 U Epithel Cells (Auto) 5.0 /HPF (0-13.0) 04/26/22 16:41 Urine Bacteria (Auto) 1+ /HPF (Negative) 04/26/22 16:41 Hyaline Casts 17 /LPF 04/26/22 16:41 Urine Mucus 1+ /HPF 04/26/22 16:41 Salicylates < 0.3 mg/dL (2.8-20.0) L 04/26/22 14:53 Urine Opiates Screen Negative 04/26/22 16:41 Urine Methadone Screen Negative 04/26/22 16:41 Acetaminophen 5.0 ug/mL (10.0-30.0) L 04/26/22 14:53 Ur Barbiturates Screen Negative 04/26/22 16:41 Ur Phencyclidine Scrn Negative 04/26/22 16:41 Ur Amphetamines Screen Negative 04/26/22 16:41 U Benzodiazepines Scrn Negative 04/26/22 16:41 Urine Cocaine Screen Negative 04/26/22 16:41 U Marijuana (THC) Screen Positive 04/26/22 16:41 Drugs of Abuse Note Disclamer 04/26/22 16:41 Plasma/Serum Alcohol < 0.01 % (0-0.07) 04/26/22 14:53 [place]/IV: Voiding Method Indwelling Catheter Active Medications - Current Medications Current Medications: Generic Name Dose Route Start Last Admin Trade Name Freq PRN Reason Stop Dose Admin Acetaminophen 650 mg 04/26/22 18:58 Acetaminophen 325 Mg Tab PO Q4H PRN Pain, Mild (1-3) Aspirin 325 mg 04/27/22 10:00 04/27/22 09:24 Aspirin 325 Mg Tab PO 325 mg QDAY REMI Administration Atorvastatin Calcium 40 mg 04/26/22 22:00 04/26/22 23:12 Atorvastatin 40 Mg Tab PO Not Given QHS REMI Bisacodyl 10 mg 04/26/22 18:58 Bisacodyl 10 Mg Rect Supp [place] QDAY PRN Constipation Haloperidol Lactate 5 mg 04/26/22 15:03 Haloperidol Lactate 5 Mg/1 Ml Inj IM Q6HR PRN Agitation Hydromorphone HCl 0.5 mg 04/26/22 18:58 04/27/22 05:39 Hydromorphone 0.5 Mg/0.5 Ml Inj IV 0.5 mg Q23H PRN Administration Pain , Severe (7-10) Lorazepam 2 mg 04/26/22 15:03 Lorazepam 2 Mg/Ml Vial IM Q4HR PRN Agitation Magnesium Hydroxide 30 ml 04/26/22 18:58 Magnesium Hydroxide (Mom) Oral Liqd Udc PO Q4H PRN Constipation Metoclopramide HCl 10 mg 04/26/22 18:58 Metoclopramide 10 Mg Tab PO Q6H PRN Nausea And Vomiting Naloxone HCl 0.1 mg 04/26/22 15:03 04/26/22 16:11 Naloxone 0.4 Mg/1 Ml Inj IV 0.1 mg Q2MIN PRN Administration Res Rate </= 8 or 02 SAT < 92% Ondansetron HCl 4 mg 04/26/22 18:58 Ondansetron 4 Mg/2 Ml Inj IV Q8H PRN Nausea And Vomiting Oxycodone/Acetaminophen 1 tab 04/26/22 18:58 Oxycodone /Acetaminophen 5-325mg Tab PO Q6H PRN Pain, Moderate (4-6) Promethazine HCl 25 mg 04/26/22 18:58 Promethazine 25 Mg Rect Supp [place] Q6H PRN Nausea And Vomiting Sodium Chloride 10 ml 04/26/22 18:58 Sodium Chloride 0.9% 10 Ml Flush Syringe IV PRN PRN LINE FLUSH
--- NOTE | 2022-04-27 14:17 | Magnetic Resonance Report ---
MRI BRAIN 04/27/2022 INDICATION / CLINICAL INFORMATION: abnormal CT, slurred speech. TECHNIQUE: Multiplanar, multisequence MR images of the brain were obtained. COMPARISON: CT brain 04/26/2022 FINDINGS: BRAIN / INTRACRANIAL CONTENTS: Unenhanced and enhanced MR images of the brain were obtained. There is 9 mm area of restricted diffusion present in the left side of the Sarika the corpus callosu m, consistent with acute ischemic injury. There are some additional punctate foci of restricted diffusion present, seen in the right centrum se miovale, left occipital cortex, and lateral aspect of the left cerebellar cortex. These smaller lesio ns are more difficult to correlate with ADC signal change. Ventricles and sulci are normal in size and shape for a patient of this age. Mild microangiopathic wh ite matter T2 weighted hyperintensities are distributed throughout the cerebral hemispheric white mat ter and deep white matter tracts. Chronic white matter T2 weighted hyperintensities are also noted in the brainstem. There is no evidence of hemorrhage or mass. There are no abnormal extra-axial fluid collections. EXTRACRANIAL: Unremarkable CRANIOCERVICAL JUNCTION: No significant abnormality. VASCULAR FLOW-VOIDS: No significant abnormality. IMPRESSION: Recent/acute ischemic changes as described above. The largest area of signal abnormality is present in the left anterior corpus callosum, corresponding to the hypodensity seen on the CT 04/26/2022. Signer Name: Jaylen Valdez MD Signed: 04/27/2022 2:12 PM Workstation Name: [email or web address]
--- NOTE | 2022-04-27 15:52 | Vascular Lab Report ---
DUPLEX DOPPLER ULTRASOUND CAROTID, BILATERAL INDICATION / CLINICAL INFORMATION: stroke. COMPARISON: None available. FINDINGS: RIGHT CAROTID: Mild atherosclerotic plaque. - PLAQUE ESTIMATE (%): < 50% - CCA velocity: 105 cm/sec. - ICA peak systolic velocity: 78 cm/sec. - ICA/CCA PSV Ratio: Less than 2. Right Vertebral Artery: Antegrade flow. LEFT CAROTID: Mild atherosclerotic plaque. - PLAQUE ESTIMATE (%): < 50% - CCA velocity: 86 cm/sec. - ICA peak systolic velocity: 95 cm/sec. - ICA/CCA PSV Ratio: Less than 2. Left Vertebral Artery: Antegrade flow. IMPRESSION: 1. Right Internal Carotid Artery: Less than 50% diameter stenosis. 2. Left Internal Carotid Artery: Less than 50% diameter stenosis. Velocity criteria are extrapolated from diameter data as defined by the Society of Radiologists in Ul trasound Consensus Conference, Radiology 2003; 229;340-346. NO STENOSIS (NORMAL) - Plaque = none; ICA PSV < 125 cm/sec; ICA/CCA PSV Ratio < 2.0 <50% STENOSIS - Plaque < 50%; ICA PSV < 125 cm/sec; ICA/CCA PSV Ratio < 2.0 50-69% STENOSIS - Plaque > 50%; ICA PSV = 125-230 cm/sec; ICA/CCA PSV Ratio = 2.0-4.0 >70% BUT <100% STENOSIS - Plaque > 50%; ICA PSV > 230 cm/sec; ICA/CCA PSV Ratio > 4.0 NEAR OCCLUSION - Plaque = visible lumen; ICA PSV = high/low/none; ICA/CCA PSV Ratio = variable TOTAL OCCLUSION - Plaque = no lumen; ICA PSV = none; ICA/CCA PSV Ratio = N/A Scribed by: Vonda Padgett RDMS, RVT, RMSKS Scribed: 04/27/2022 1:24 PM I have reviewed the images, agree with this report, and edited this report as needed. Signer Name: Kenny Wray MD Signed: 04/27/2022 3:48 PM Workstation Name: [id number]
[2022-04-27] MEDS: INSULIN LISPRO 100 UNIT/ML SUB-Q SCH (22:00)
[2022-04-28] MEDS: hydrALAZINE 20 MG/1 ML INJ IV PRN (01:11)
[2022-04-28] MEDS ORDERED: HYDROmorphone 2 MG/1 ML INJ IV ONE (01:30)
--- NOTE | 2022-04-28 08:33 | Progress Note ---
Assessment and Plan Assessment and plan: 72 YO Female with Vascular Dementia, Cerebral Atherosclerosis, HTN, DM, CVA, Metabolic syndrome, Obesity, Nicotine Dependence presents to ED for evaluation of lethargy with diminished cognition. Patient history provided by who reported that he and his were out eating lunch on the day of admission when the patient became unresponsive. EMS was notified and upon arrival the patient was found to be in distress and subsequently transported to [facility] for further care and evaluation of the aforementioned symptoms. The patient was treated with Narcan without improvement in symptoms. Patient seen and evaluated emergency department. All lab and imaging studies reviewed. Patient found to have clinical symptoms consistent with CVA. Patient initiated on CVA protocol due to increased risk of worsening symptoms after medical stabilization. --Acute CVA; Not a candidate for tPA Neuro work-up is in progress Continue aspirin and statin Continue aspirin [consider Plavix ]and statin Follow MRI, carotid Doppler, echocardiogram Physical therapy, Occupational Therapy, rehabilitation DC planning. --History of recurrent CVA; Cardiology evaluation/TTE no thrombus no PFO/shunt Ambulatory patient monitor to rule out paroxysmal atrial fibrillation/ flutter SIDRA, --Acute metabolic encephalopathy; Probably secondary to acute CVA, supportive care Acute CVA work-up; --CT head without contrast; 04/26/2022 Taking lesion hold focal area of vasogenic edema since the last CT scan from 10 days ago low-attenuation lesion in the left side of the genu of the corpus callosum with mild mass-effect over the left lateral ventricle subacute ischemia --carotid Doppler: less than 50% stenosis bilateral internal carotid arteries --Echocardiogram; 04/26; EF 55 to 60% bubble study no PFO noted --Chest x-ray; no acute abnormality of the chest noted --MRI brain; 04/27/2022 recent acute ischemic changes are described the largest area of signal abnormalities present in the left anterior corpus callosum corresponding to the hypodensity seen on the CT scan --Hyponatremia; resolved --Hypertension; moderate control Continue current antihypertensives and as needed medications 04/27/2022. CT scan reveals new lesion in the left side of the genu of corpus callosum with mild mass-effect along the anterior wall of the left frontal horn likely subacute ischemia though ischemic lesions in the corpus callosum are very rare because of dual blood supply. I discussed the case with neurosurgeon, Dr. Lyon who recommends MRI with/without contrast. Patient initiated on aspirin and Lipitor on admission. PT/OT/ST 04/28/2020; I called patient's daughter Ms. Valerio at [phone] and discussed in detail patient's condition, tests and reports, consultants recommendation, treatment plan, prognosis. She reported that patient was admitted to [place] on april with similar complaints, I assured her that we will get medical records from [place]. She had numerous questions and complaints, answered and addressed all of them. And encouraged her to call back if she has any new questions or concerns History Interval history: Have seen and examined the patient at the bedside Patient's chart and medications reviewed Patient was admitted with acute CVA Extensive neuro work-up is in progress Patient feels slightly better Responding to simple questions appropriately Vital signs noted Hospitalist Physical - Constitutional Vitals: Temp Pulse Resp BP Pulse Ox 98.5 F 96 H 16 156/75 100 04/28/22 06:09 04/28/22 06:09 04/28/22 06:09 04/28/22 06:09 04/28/22 06:09 General appearance: Present: no acute distress, well-nourished, obese - EENT Eyes: Present: PERRL, EOM intact - Neck Neck: Present: supple, normal ROM - Respiratory Respiratory effort: normal Respiratory: bilateral: diminished, negative: rales, rhonchi, wheezing - Cardiovascular Rhythm: regular Heart Sounds: Present: S1 & S2 - Extremities Extremities: no ischemia, No edema - Abdominal General gastrointestinal: soft, non-tender, non-distended, normal bowel sounds - Integumentary Integumentary: Present: clear, warm - Psychiatric Psychiatric: appropriate mood/affect, cooperative - Neurologic Neurologic: CNII-XII intact, moves all extremities HEART Score - HEART Score Troponin: Troponin T < 0.010 ng/mL (0.00-0.029) 04/26/22 14:53 Results - Labs CBC & Chem 7: 04/26/22 14:53 04/28/22 08:11 Labs: Laboratory Last Values WBC 8.2 K/mm3 (4.5-11.0) 04/26/22 14:53 RBC 4.50 M/mm3 (3.65-5.03) 04/26/22 14:53 Hgb 12.5 gm/dl (10.1-14.3) 04/26/22 14:53 Hct 38.8 % (30.3-42.9) 04/26/22 14:53 MCV 86 fl (79-97) 04/26/22 14:53 MCH 28 pg (28-32) 04/26/22 14:53 MCHC 32 % (30-34) 04/26/22 14:53 RDW 14.4 % (13.2-15.2) 04/26/22 14:53 Plt Count 322 K/mm3 (140-440) 04/26/22 14:53 Lymph % (Auto) 23.7 % (13.4-35.0) 04/26/22 14:53 [place] % (Auto) 9.9 % (0.0-7.3) H 04/26/22 14:53 Eos % (Auto) 2.0 % (0.0-4.3) 04/26/22 14:53 Baso % (Auto) 0.7 % (0.0-1.8) 04/26/22 14:53 Lymph # (Auto) 1.9 K/mm3 (1.2-5.4) 04/26/22 14:53 [place] # (Auto) 0.8 K/mm3 (0.0-0.8) 04/26/22 14:53 Eos # (Auto) 0.2 K/mm3 (0.0-0.4) 04/26/22 14:53 Baso # (Auto) 0.1 K/mm3 (0.0-0.1) 04/26/22 14:53 Seg Neutrophils % 63.7 % (40.0-70.0) 04/26/22 14:53 Seg Neutrophils # 5.2 K/mm3 (1.8-7.7) 04/26/22 14:53 PT 13.3 Sec. (12.2-14.9) 04/26/22 14:53 INR 0.92 (0.87-1.13) 04/26/22 14:53 APTT 29.2 Sec. (24.2-36.6) 04/26/22 14:53 Sodium 139 mmol/L (137-145) D 04/26/22 16:50 Potassium 4.2 mmol/L (3.6-5.0) D 04/26/22 16:50 Chloride 105.1 mmol/L (98-107) 04/26/22 16:50 Carbon Dioxide 24 mmol/L (22-30) 04/26/22 16:50 Anion Gap 14 mmol/L 04/26/22 16:50 BUN 28 mg/dL (7-17) H 04/26/22 16:50 Creatinine 1.2 mg/dL (0.6-1.2) 04/26/22 16:50 Estimated GFR 54 ml/min 04/26/22 16:50 BUN/Creatinine Ratio 23 % 04/26/22 16:50 Glucose 128 mg/dL (65-100) H 04/26/22 16:50 POC Glucose 164 mg/dL (70-105) H 04/28/22 07:18 Lactic Acid 1.60 mmol/L (0.7-2.0) 04/26/22 14:53 Calcium 9.9 mg/dL (8.4-10.2) 04/26/22 16:50 Total Bilirubin 0.30 mg/dL (0.1-1.2) 04/26/22 16:50 AST 17 units/L (5-40) 04/26/22 16:50 ALT 16 units/L (7-56) 04/26/22 16:50 Alkaline Phosphatase 101 units/L (35-129) 04/26/22 16:50 Ammonia 25.0 umol/L (25-60) 04/26/22 14:53 Total Creatine Kinase TNR 04/26/22 14:53 Troponin T < 0.010 ng/mL (0.00-0.029) 04/26/22 14:53 Total Protein 7.1 g/dL (6.3-8.2) 04/26/22 16:50 Albumin 3.9 g/dL (3.9-5) 04/26/22 16:50 Albumin/Globulin Ratio 1.2 % 04/26/22 16:50 TSH 2.270 mlU/mL (0.270-4.200) 04/26/22 19:04 Free T4 1.28 ng/dL (0.76-1.46) 04/26/22 19:04 Urine Color Yellow (Yellow) 04/26/22 16:41 Urine Turbidity Slightly-cloudy (Clear) 04/26/22 16:41 Urine pH 5.0 (5.0-7.0) 04/26/22 16:41 Ur Specific [place] 1.030 (1.003-1.030) 04/26/22 16:41 Urine Protein 100 mg/dl mg/dL (Negative) 04/26/22 16:41 Urine Glucose (UA) Neg mg/dL (Negative) 04/26/22 16:41 Urine Ketones Neg mg/dL (Negative) 04/26/22 16:41 Urine Blood Neg (Negative) 04/26/22 16:41 Urine Nitrite Neg (Negative) 04/26/22 16:41 Urine Bilirubin Mod (Negative) 04/26/22 16:41 Urine Ictotest Negative (Negative) 04/26/22 16:41 Urine Urobilinogen 2.0 mg/dL (<2.0) 04/26/22 16:41 Ur Leukocyte Esterase Neg (Negative) 04/26/22 16:41 Urine WBC (Auto) < 1.0 /HPF (0.0-6.0) 04/26/22 16:41 Urine RBC (Auto) < 1.0 /HPF (0.0-6.0) 04/26/22 16:41 U Epithel Cells (Auto) 5.0 /HPF (0-13.0) 04/26/22 16:41 Urine Bacteria (Auto) 1+ /HPF (Negative) 04/26/22 16:41 Hyaline Casts 17 /LPF 04/26/22 16:41 Urine Mucus 1+ /HPF 04/26/22 16:41 Salicylates < 0.3 mg/dL (2.8-20.0) L 04/26/22 14:53 Urine Opiates Screen Negative 04/26/22 16:41 Urine Methadone Screen Negative 04/26/22 16:41 Acetaminophen 5.0 ug/mL (10.0-30.0) L 04/26/22 14:53 Ur Barbiturates Screen Negative 04/26/22 16:41 Ur Phencyclidine Scrn Negative 04/26/22 16:41 Ur Amphetamines Screen Negative 04/26/22 16:41 U Benzodiazepines Scrn Negative 04/26/22 16:41 Urine Cocaine Screen Negative 04/26/22 16:41 U Marijuana (THC) Screen Positive 04/26/22 16:41 Drugs of Abuse Note Disclamer 04/26/22 16:41 Plasma/Serum Alcohol < 0.01 % (0-0.07) 04/26/22 14:53 [place]/IV: Voiding Method Toilet Active Medications - Current Medications Current Medications: Generic Name Dose Route Start Last Admin Trade Name Freq PRN Reason Stop Dose Admin Acetaminophen 650 mg 04/26/22 18:58 Acetaminophen 325 Mg Tab PO Q4H PRN Pain, Mild (1-3) Aspirin 325 mg 04/27/22 10:00 04/27/22 09:24 Aspirin 325 Mg Tab PO 325 mg QDAY REMI Administration Atorvastatin Calcium 40 mg 04/26/22 22:00 04/27/22 22:00 Atorvastatin 40 Mg Tab PO Not Given QHS REMI Bisacodyl 10 mg 04/26/22 18:58 Bisacodyl 10 Mg Rect Supp NE QDAY PRN Constipation Haloperidol Lactate 5 mg 04/26/22 15:03 Haloperidol Lactate 5 Mg/1 Ml Inj IM Q6HR PRN Agitation Hydralazine HCl 10 mg 04/28/22 00:30 04/28/22 01:11 Hydralazine 20 Mg/1 Ml Inj IV 10 mg Q6H PRN Administration Blood Pressure Hydromorphone HCl 0.5 mg 04/26/22 18:58 04/27/22 05:39 Hydromorphone 0.5 Mg/0.5 Ml Inj IV 0.5 mg Q23H PRN Administration Pain , Severe (7-10) Insulin Human Lispro 0 unit 04/27/22 22:00 04/27/22 22:00 Insulin Lispro 100 Unit/Ml SUB-Q Not Given [facility] Protocol Lorazepam 2 mg 04/26/22 15:03 Lorazepam 2 Mg/Ml Vial IM Q4HR PRN Agitation Magnesium Hydroxide 30 ml 04/26/22 18:58 Magnesium Hydroxide (Mom) Oral Liqd Udc PO Q4H PRN Constipation Metoclopramide HCl 10 mg 04/26/22 18:58 Metoclopramide 10 Mg Tab PO Q6H PRN Nausea And Vomiting Naloxone HCl 0.1 mg 04/26/22 15:03 04/26/22 16:11 Naloxone 0.4 Mg/1 Ml Inj IV 0.1 mg Q2MIN PRN Administration Res Rate </= 8 or 02 SAT < 92% Ondansetron HCl 4 mg 04/26/22 18:58 Ondansetron 4 Mg/2 Ml Inj IV Q8H PRN Nausea And Vomiting Oxycodone/Acetaminophen 1 tab 04/26/22 18:58 Oxycodone /Acetaminophen 5-325mg Tab PO Q6H PRN Pain, Moderate (4-6) Promethazine HCl 25 mg 04/26/22 18:58 Promethazine 25 Mg Rect Supp NE Q6H PRN Nausea And Vomiting Sodium Chloride 10 ml 04/26/22 18:58 Sodium Chloride 0.9% 10 Ml Flush Syringe IV PRN PRN LINE FLUSH Nutrition/Malnutrition Assess - Dietary Evaluation Nutrition/Malnutrition Findings: Nutrition Notes Start: 04/27/22 13:17 Freq: Status: Active Protocol: Document 04/27/22 13:17 PATI (Rec: 04/27/22 13:21 PATI [id number]) Nutrition Notes Need for 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 PMHx includes vascular dementia and cerebral atherosclerosis. Burn Absent Trauma Absent Skin Integrity/Comment No skin breakdown reported Minimum of two criteria No #1 Nutrition Diagnosis Inadequate oral intake Etiology recent CVA As Evidenced by Signs and Symptoms pt NPO Is patient on ventilator? No Is Patient Ambulatory and/or Out of Bed No REE-([facility]-confined to bed) 1488.156 Kcal/Kg value to use for calculation 16 Approximate Energy Requirements Using 1219 kcal/Kg Calculation Used for Recommendations Kcal/kg Additional Notes Pro needs 1-1.2g/kg adjBW: 63- 76g/day Fluid needs 1ml/kcal Nutrition Intervention Change Diet Order: Advance diet when medically feasible Goal #1 Diet advancement to meet nutrient needs Anticipated Discharge Needs: Heart-healthy, CHO-controlled diet Follow-Up By: 04/29/22 Additional Comments F/U: diet advancement
[2022-04-28 09:09] LABS: Alanine Aminotransferase 16 units/L (7-56); Albumin 3.7 g/dL (3.9-5); BUN/Creatinine Ratio 26; Blood Urea Nitrogen 21 mg/dL (7-17); Calcium 9.3 mg/dL (8.4-10.2); Hemolysis Index 5
[2022-04-28] MEDS: ASPIRIN 325 MG TAB PO SCH (09:33)
[2022-04-28] MEDS: INSULIN LISPRO 100 UNIT/ML SUB-Q SCH ×4 (09:33→21:10)
--- NOTE | 2022-04-28 15:08 | Event Note ---
Date: 04/28/22 I called patient's daughter Ms. Valerio at [phone] and discussed in detail patient's condition, tests and reports, consultants recommendation, treatment plan, prognosis. She reported that patient was admitted to [place] on april with similar complaints, I assured her that we will get medical records from [place]. She had numerous questions and complaints, answered and addressed all of them. And encouraged her to call back if she has any new questions or concerns
[2022-04-28] MEDS: amLODIPine 10 MG TAB PO SCH (17:05)
[2022-04-28] MEDS: LOSARTAN 25 MG TAB PO SCH (17:07)
[2022-04-28] MEDS: oxyCODONE /ACETAMINOPHEN 5-325MG TAB PO PRN (20:57)
[2022-04-29] MEDS: INSULIN LISPRO 100 UNIT/ML SUB-Q SCH ×4 (07:30→23:57)
--- NOTE | 2022-04-29 08:16 | Consultation ---
History of Present Illness Consult date: 04/29/22 Reason for Consult: CVA Chief complaint: I don't remember. History of present illness: 72 yo female with recent (04/19/22) stroke (@ [facility]), htn, dm, vascular dementia, obesity, who presents with an episode of unresponsiveness with concern for an acute stroke upon presentation to the ED. Evaluated by Telestroke physician who noted a NIHSS of 3 at the time. Patient notes that she is fine right now but notes unsteadiness when she is standing or ambulating. Notes that she initially thought that maybe her BGL was low but told by her daughter that the BGL was not low when checked by EMS. She is surprised that the MRI showed a possible new stroke after just having a new stroke 10 days ago. Notes she is r mayte to keep celebrating her 72th birthday. Past History Past Medical History: diabetes, hypertension, stroke Past Surgical History: cholecystectomy, Other (eye Surgery) Social history: , smoking. denies: alcohol abuse, prescription drug abuse Family history: diabetes, hypertension Medications and Allergies Allergies Allergy/AdvReac Type Severity Reaction Status Date / Time No Known Allergies Allergy Verified 04/26/22 14:14 Home Medications Medication Instructions Recorded Confirmed Last Taken Type Acetaminophen/Codeine [Tylenol 1 tab PO Q6H PRN #12 tab 12/30/18 04/27/22 Unknown Rx /Codeine # 3 tab] Chlorhexidine Mouthwash [Peridex] 15 ml MM BID #1 bottle 12/30/18 04/27/22 Unknown Rx Neomycn/Bacitrc/Polymyx/Pramox 1 applicatio TP BID 14 Days #1 tube 12/30/18 04/27/22 Unknown Rx [Neosporin + Pain Relief Oint] cephALEXin [Keflex] 500 mg PO TID 10 Days #30 capsule 12/30/18 04/27/22 Unknown Rx Benzonatate [Tessalon Perles] 100 mg PO Q8HR PRN #20 capsule 03/05/21 04/27/22 Unknown Rx Ondansetron [Zofran Odt] 4 mg PO Q8HR PRN #20 tab.rapdis 03/05/21 04/27/22 Unknown Rx Baclofen [Lioresal] 10 mg PO Q12H PRN #20 tab 04/16/21 04/27/22 Unknown Rx Naproxen [Naprosyn TAB] 500 mg PO Q12H PRN #20 tablet 04/16/21 04/27/22 Unknown Rx traMADoL [Ultram] 50 mg PO Q6HR PRN #12 tablet 04/16/21 04/27/22 Unknown Rx Losartan Potassium 25 mg PO DAILY 04/27/22 04/27/22 1 Day Ago History ~04/26/22 25 mg amLODIPine [Norvasc] 10 mg PO DAILY 04/27/22 04/27/22 1 Day Ago History ~04/26/22 10 mg Active Meds: Active Medications Acetaminophen (Acetaminophen 325 Mg Tab) 650 mg PO Q4H PRN PRN Reason: Pain, Mild (1-3) Amlodipine Besylate (Amlodipine 10 Mg Tab) 10 mg PO DAILY [facility] Last Admin: 04/28/22 17:05 Dose: 10 mg Aspirin (Aspirin 325 Mg Tab) 325 mg PO QDAY [facility] Last Admin: 04/28/22 09:33 Dose: 325 mg Atorvastatin Calcium (Atorvastatin 40 Mg Tab) 40 mg PO QHS [facility] Last Admin: 04/28/22 21:00 Dose: 40 mg Bisacodyl (Bisacodyl 10 Mg Rect Supp) 10 mg MT QDAY PRN PRN Reason: Constipation Haloperidol Lactate (Haloperidol Lactate 5 Mg/1 Ml Inj) 5 mg IM Q6HR PRN PRN Reason: Agitation Hydralazine HCl (Hydralazine 20 Mg/1 Ml Inj) 10 mg IV Q6H PRN PRN Reason: Blood Pressure Last Admin: 04/28/22 01:11 Dose: 10 mg Hydromorphone HCl (Hydromorphone 0.5 Mg/0.5 Ml Inj) 0.5 mg IV Q23H PRN PRN Reason: Pain , Severe (7-10) Last Admin: 04/27/22 05:39 Dose: 0.5 mg Insulin Human Lispro (Insulin Lispro 100 Unit/Ml) 0 unit SUB-Q [facility]; Protocol Last Admin: 04/28/22 21:10 Dose: 3 unit Lorazepam (Lorazepam 2 Mg/Ml Vial) 2 mg IM Q4HR PRN PRN Reason: Agitation Losartan Potassium (Losartan 25 Mg Tab) 25 mg PO QDAY [facility] Last Admin: 04/28/22 17:07 Dose: 25 mg Magnesium Hydroxide (Magnesium Hydroxide (Mom) Oral Liqd Udc) 30 ml PO Q4H PRN PRN Reason: Constipation Last Admin: 04/28/22 21:10 Dose: 30 ml Metoclopramide HCl (Metoclopramide 10 Mg Tab) 10 mg PO Q6H PRN PRN Reason: Nausea And Vomiting Naloxone HCl (Naloxone 0.4 Mg/1 Ml Inj) 0.1 mg IV Q2MIN PRN PRN Reason: Res Rate </= 8 or 02 SAT < 92% Last Admin: 04/26/22 16:11 Dose: 0.1 mg Ondansetron HCl (Ondansetron 4 Mg/2 Ml Inj) 4 mg IV Q8H PRN PRN Reason: Nausea And Vomiting Oxycodone/Acetaminophen (Oxycodone /Acetaminophen 5-325mg Tab) 1 tab PO Q6H PRN PRN Reason: Pain, Moderate (4-6) Last Admin: 04/28/22 20:57 Dose: 1 tab Promethazine HCl (Promethazine 25 Mg Rect Supp) 25 mg MT Q6H PRN PRN Reason: Nausea And Vomiting Sodium Chloride (Sodium Chloride 0.9% 10 Ml Flush Syringe) 10 ml IV PRN PRN PRN Reason: LINE FLUSH Last Admin: 04/28/22 21:00 Dose: 10 ml Review of Systems All systems: negative (as per hpi;) Physical Examination - Vital Signs Vital Signs: Vital Signs Resp 13 04/26/22 14:44 - Physical Exam Narrative exam: Gen: nad, well-nourished; Head: normocephalic; Eyes: no gaze deviation; no ptosis; ENT: normal vocalization; CVS: warm and well-perfused; Pulm: no respiratory distress; GI: appears non-distended; Ext: no cyanosis appreciated at distal extremities; Skin: no acute rash at distal extremities; Heme: no pathologic ecchymosis appreciated at distal extremities; Neuro: alert, oriented to name, age, month, year, no dysarthria, no aphasia, CN 2 - PERRL, visual lee grossly intact, CN 3, 4, 6 - EOMI, CN 5 - facial sensation symmetric to light touch, CN 7 - facial movement symmetric, CN 8 - hearing grossly intact, CN 9, 10 - uvula midline, CN 11 symmetric shoulder movement, CN 12 - tongue midline; Motor - at least 4+/5 at all exts; Sensory - light touch symmetric, Cerebellar - fnf /hts intact, Gait - deferred secondary to fall risk; NIHSS (1a.) Level of Consciousness:0 (1b.) LOC Questions:0 (1c.) LOC Commands:0 (2.) Best Gaze:0 (3.) Visual:0 (4.) Facial Palsy:0 (5a.) Motor Arm, Left:0 (5b.) Motor Arm, Right:0 (6a.) Motor Leg, Left:0 (6b.) Motor Leg, Right:0 (7.) Limb Ataxia:0 (8.) Sensory:0 (9.) Best Language:0 (10.) Dysarthria:0 (11.) Extinction and Inattention:0 NIHSS Total Score: 0 Results - Laboratory Findings CBC and BMP: 04/26/22 14:53 04/28/22 08:11 Abnormal Lab Findings: Abnormal Labs 04/26/22 04/26/22 04/26/22 14:11 14:53 14:53 [place] % (Auto) 9.9 H Sodium 80 L* Potassium 1.5 L* Chloride 60.0 L Carbon Dioxide 18 L BUN 27 H Glucose 173 H POC Glucose 227 H Phosphorus ALT < 5 L Alkaline Phosphatase < 5 L Albumin < 0.2 L TSH Salicylates Acetaminophen 04/26/22 04/26/22 04/26/22 14:53 14:53 14:53 [place] % (Auto) Sodium Potassium Chloride Carbon Dioxide BUN Glucose POC Glucose Phosphorus ALT Alkaline Phosphatase Albumin TSH 4.370 H Salicylates < 0.3 L Acetaminophen 5.0 L 04/26/22 04/27/22 04/28/22 16:50 22:02 07:18 [place] % (Auto) Sodium Potassium Chloride Carbon Dioxide BUN 28 H Glucose 128 H POC Glucose 133 H 164 H Phosphorus ALT Alkaline Phosphatase Albumin TSH Salicylates Acetaminophen 04/28/22 04/28/22 04/28/22 08:11 11:18 16:08 [place] % (Auto) Sodium Potassium 3.4 L Chloride Carbon Dioxide BUN 21 H Glucose 169 H POC Glucose 152 H 134 H Phosphorus 2.40 L ALT Alkaline Phosphatase Albumin 3.7 L TSH Salicylates Acetaminophen 04/28/22 21:06 [place] % (Auto) Sodium Potassium Chloride Carbon Dioxide BUN Glucose POC Glucose 164 H Phosphorus ALT Alkaline Phosphatase Albumin TSH Salicylates Acetaminophen Assessment and Plan 72 yo female with recent (04/19/22) stroke (@ [facility]), htn, dm, vascular dementia, obesity, who presents with an episode of unresponsiveness with concern for an acute stroke upon presentation to the ED. Notes unsteadiness of gait. 1. Acute Ischemic Stroke: [ASA 81 mg PO qday; Plavix 75 mg po qday x21 days; based on [facility] records, if the following studies have been done then no need to repeat: CTA Head/Neck w/ & w/o contrast, TTEcho, LDL/HgbA1C/TSH/Covid- 19/UDS; in addition, would recommend a SIDRA and long-term cardiac monitoring (?paroxysmal afib); telemetry, NIHSS q4 hours; SBP goal 160-200 mmHg and DBP 80- 100 mmHg for 24 more hours. Statin therapy for a goal LDL of 70, when patient passes swallow evaluation. PT/OT/ST/Swallow evaluation. Long-term risk-factor modification, including a strict diet/exercise regimen for secondary stroke prophylaxis. Stroke education prior to discharge. 2. Hypertension - goal SBP 160-200 mmHg and DBP 80-100 mmHg for 24 more hours. 3. Diabetes Mellitus - maintain euglycemia. 4. Dyslipidemia - goal LDL of 70 w/ statin therapy if no contraindications. 5. Seizure - eeg / mri brain w/ contrast ordered. 6. Syncope - non-neurogenic workup per primary team. 7. Unsteady Gait - pt/ot evaluation/monitoring; fall precautions. Abhinav Guido MD Neurology [id number]
--- NOTE | 2022-04-29 09:53 | Progress Note ---
Assessment and Plan Assessment and plan: --Acute CVA; Extensive neuro work-up reviewed PT OT recommended home health PT/OT --History of recurrent CVA; Cardiology evaluation/TTE no thrombus no PFO/shunt Ambulatory cardiac/vascular sonographer to rule out paroxysmal atrial fibrillation/ flutter check SIDRA to rule out cardioembolic causes of recurrent CVA Neurologist recommended SIDRA, outpatient continuous monitoring to rule out par oxysmal A. fib flutter I have ordered SIDRA, human resources analyst informed me that TTE did not show any shunt/PFO on bubble study[ruling out cardioembolic causes] No indication for SIDRA and I canceled SIDRA ordered. Patient will follow up with outpatient cardiology for continuous monitoring outpatient And possible SIDRA outpatient if still needed --Acute metabolic encephalopathy; Probably secondary to acute CVA, supportive care Acute CVA work-up; --CT head without contrast; 04/26/2022 Taking lesion hold focal area of vasogenic edema since the last CT scan from 10 days ago low-attenuation lesion in the left side of the genu of the corpus callosum with mild mass-effect over the left lateral ventricle subacute ischemia --carotid Doppler: less than 50% stenosis bilateral internal carotid arteries --Echocardiogram; 04/26; EF 55 to 60% bubble study no PFO noted --Chest x-ray; no acute abnormality of the chest noted --MRI brain; 04/27/2022 recent acute ischemic changes are described the largest area of signal abnormalities present in the left anterior corpus callosum corresponding to the hypodensity seen on the CT scan --Hyponatremia; resolved --Hypertension; moderate control Continue current antihypertensives and as needed medications Possible discharge tomorrow if stable. DC with home health services/home health PT Will update daughter. Tomorrow morning Brief history and hospital course: 72 YO Female with Vascular Dementia, Cerebral Atherosclerosis, HTN, DM, CVA, Metabolic syndrome, Obesity, Nicotine Dependence presents to ED for evaluation of lethargy with diminished cognition. Patient history provided by who reported that he and his were out eating lunch on the day of admission when the patient became unresponsive. EMS was notified and upon arrival the patient was found to be in distress and subsequently transported to [facility] for further care and evaluation of the aforementioned symptoms. The patient was treated with Narcan without improvement in symptoms. Patient seen and evaluated emergency department. All lab and imaging studies reviewed. Patient found to have clinical symptoms consistent with CVA. Patient initiated on CVA protocol due to increased risk of worsening symptoms after medical stabilization. 04/27/2022. CT scan reveals new lesion in the left side of the genu of corpus callosum with mild mass-effect along the anterior wall of the left frontal horn likely subacute ischemia though ischemic lesions in the corpus callosum are very rare because of dual blood supply. I discussed the case with neurosurgeon, Dr. Lyon who recommends MRI with/without contrast. Patient initiated on aspirin and Lipitor on admission. PT/OT/ST 04/28/2022; I called patient's daughter Ms. Valerio at [phone] and discussed in detail patient's condition, tests and reports, consultants recommendation, treatment plan, prognosis. She reported that patient was admitted to [facility] on april with similar complaints, I assured her that we will get medical records from [facility]. She had numerous questions and complaints, answered and addressed all of them. And encouraged her to call back if she has any new questions or concerns 04/29/2022; PT OT evaluation recommendations noted, recommend home health PT/OT Urology recommended SIDRA to rule out cardioembolic causes of recurrent PE I initially ordered SIDRA, human resources analyst Dr. Tripathi called and said patient's echocardiogram did not show Any shunt /PFO, to cause cardioembolic CVAs, hence SIDRA is not indicated at this point I DC'd SIDRA request, however patient needs ambulatory continuous cardiac monitoring to rule out paroxysmal A. fib flutter Possible discharge home tomorrow if stable History Interval history: I have seen and examined the patient at the bedside Patient's chart and medications reviewed No new events reported by the nursing Patient is tolerating physical therapy occupational therapy Both services recommend home health PT Neurology evaluation recommendations noted and appreciated Recommend SIDRA to rule out cardioembolic phenomena of recurrent CVAs Vital signs noted Hospitalist Physical - Constitutional Vitals: Temp Pulse Resp BP Pulse Ox 97.8 F 94 H 16 150/93 100 04/29/22 04:24 04/29/22 04:24 04/29/22 04:24 04/29/22 04:24 04/29/22 04:24 General appearance: Present: no acute distress, well-nourished, obese - EENT Eyes: Present: PERRL, EOM intact - Neck Neck: Present: supple, normal ROM - Respiratory Respiratory effort: normal Respiratory: bilateral: diminished, negative: rales, rhonchi, wheezing - Cardiovascular Rhythm: regular Heart Sounds: Present: S1 & S2 - Extremities Extremities: no ischemia, No edema - Abdominal General gastrointestinal: soft, non-tender, non-distended, normal bowel sounds - Integumentary Integumentary: Present: clear, warm - Psychiatric Psychiatric: appropriate mood/affect, cooperative - Neurologic Neurologic: CNII-XII intact, moves all extremities HEART Score - HEART Score Troponin: Troponin T < 0.010 ng/mL (0.00-0.029) 04/26/22 14:53 Results - Labs CBC & Chem 7: 04/26/22 14:53 04/28/22 08:11 Labs: Laboratory Last Values WBC 8.2 K/mm3 (4.5-11.0) 04/26/22 14:53 RBC 4.50 M/mm3 (3.65-5.03) 04/26/22 14:53 Hgb 12.5 gm/dl (10.1-14.3) 04/26/22 14:53 Hct 38.8 % (30.3-42.9) 04/26/22 14:53 MCV 86 fl (79-97) 04/26/22 14:53 MCH 28 pg (28-32) 04/26/22 14:53 MCHC 32 % (30-34) 04/26/22 14:53 RDW 14.4 % (13.2-15.2) 04/26/22 14:53 Plt Count 322 K/mm3 (140-440) 04/26/22 14:53 Lymph % (Auto) 23.7 % (13.4-35.0) 04/26/22 14:53 [place] % (Auto) 9.9 % (0.0-7.3) H 04/26/22 14:53 Eos % (Auto) 2.0 % (0.0-4.3) 04/26/22 14:53 Baso % (Auto) 0.7 % (0.0-1.8) 04/26/22 14:53 Lymph # (Auto) 1.9 K/mm3 (1.2-5.4) 04/26/22 14:53 [place] # (Auto) 0.8 K/mm3 (0.0-0.8) 04/26/22 14:53 Eos # (Auto) 0.2 K/mm3 (0.0-0.4) 04/26/22 14:53 Baso # (Auto) 0.1 K/mm3 (0.0-0.1) 04/26/22 14:53 Seg Neutrophils % 63.7 % (40.0-70.0) 04/26/22 14:53 Seg Neutrophils # 5.2 K/mm3 (1.8-7.7) 04/26/22 14:53 PT 13.3 Sec. (12.2-14.9) 04/26/22 14:53 INR 0.92 (0.87-1.13) 04/26/22 14:53 APTT 29.2 Sec. (24.2-36.6) 04/26/22 14:53 Sodium 139 mmol/L (137-145) 04/28/22 08:11 Potassium 3.4 mmol/L (3.6-5.0) L 04/28/22 08:11 Chloride 103.1 mmol/L (98-107) 04/28/22 08:11 Carbon Dioxide 26 mmol/L (22-30) 04/28/22 08:11 Anion Gap 13 mmol/L 04/28/22 08:11 BUN 21 mg/dL (7-17) H 04/28/22 08:11 Creatinine 0.8 mg/dL (0.6-1.2) 04/28/22 08:11 Estimated GFR > 60 ml/min 04/28/22 08:11 BUN/Creatinine Ratio 26 % 04/28/22 08:11 Glucose 169 mg/dL (65-100) H 04/28/22 08:11 POC Glucose 152 mg/dL (70-105) H 04/29/22 08:11 Lactic Acid 1.60 mmol/L (0.7-2.0) 04/26/22 14:53 Calcium 9.3 mg/dL (8.4-10.2) 04/28/22 08:11 Phosphorus 2.40 mg/dL (2.5-4.5) L 04/28/22 08:11 Magnesium 1.90 mg/dL (1.7-2.3) 04/28/22 08:11 Total Bilirubin 0.40 mg/dL (0.1-1.2) 04/28/22 08:11 AST 21 units/L (5-40) 04/28/22 08:11 ALT 16 units/L (7-56) 04/28/22 08:11 Alkaline Phosphatase 100 units/L (35-129) 04/28/22 08:11 Ammonia 25.0 umol/L (25-60) 04/26/22 14:53 Total Creatine Kinase TNR 04/26/22 14:53 Troponin T < 0.010 ng/mL (0.00-0.029) 04/26/22 14:53 Total Protein 7.3 g/dL (6.3-8.2) 04/28/22 08:11 Albumin 3.7 g/dL (3.9-5) L 04/28/22 08:11 Albumin/Globulin Ratio 1.0 % 04/28/22 08:11 TSH 2.270 mlU/mL (0.270-4.200) 04/26/22 19:04 Free T4 1.28 ng/dL (0.76-1.46) 04/26/22 19:04 Urine Color Yellow (Yellow) 04/26/22 16:41 Urine Turbidity Slightly-cloudy (Clear) 04/26/22 16:41 Urine pH 5.0 (5.0-7.0) 04/26/22 16:41 Ur Specific [place] 1.030 (1.003-1.030) 04/26/22 16:41 Urine Protein 100 mg/dl mg/dL (Negative) 04/26/22 16:41 Urine Glucose (UA) Neg mg/dL (Negative) 04/26/22 16:41 Urine Ketones Neg mg/dL (Negative) 04/26/22 16:41 Urine Blood Neg (Negative) 04/26/22 16:41 Urine Nitrite Neg (Negative) 04/26/22 16:41 Urine Bilirubin Mod (Negative) 04/26/22 16:41 Urine Ictotest Negative (Negative) 04/26/22 16:41 Urine Urobilinogen 2.0 mg/dL (<2.0) 04/26/22 16:41 Ur Leukocyte Esterase Neg (Negative) 04/26/22 16:41 Urine WBC (Auto) < 1.0 /HPF (0.0-6.0) 04/26/22 16:41 Urine RBC (Auto) < 1.0 /HPF (0.0-6.0) 04/26/22 16:41 U Epithel Cells (Auto) 5.0 /HPF (0-13.0) 04/26/22 16:41 Urine Bacteria (Auto) 1+ /HPF (Negative) 04/26/22 16:41 Hyaline Casts 17 /LPF 04/26/22 16:41 Urine Mucus 1+ /HPF 04/26/22 16:41 Salicylates < 0.3 mg/dL (2.8-20.0) L 04/26/22 14:53 Urine Opiates Screen Negative 04/26/22 16:41 Urine Methadone Screen Negative 04/26/22 16:41 Acetaminophen 5.0 ug/mL (10.0-30.0) L 04/26/22 14:53 Ur Barbiturates Screen Negative 04/26/22 16:41 Ur Phencyclidine Scrn Negative 04/26/22 16:41 Ur Amphetamines Screen Negative 04/26/22 16:41 U Benzodiazepines Scrn Negative 04/26/22 16:41 Urine Cocaine Screen Negative 04/26/22 16:41 U Marijuana (THC) Screen Positive 04/26/22 16:41 Drugs of Abuse Note Disclamer 04/26/22 16:41 Plasma/Serum Alcohol < 0.01 % (0-0.07) 04/26/22 14:53 Microbiology: Microbiology 04/27/22 07:10 Urine,Clean Catch Urine Culture - Final NO GROWTH AFTER 48 HOURS Ford/IV: Voiding Method Indwelling Catheter Active Medications - Current Medications Current Medications: Generic Name Dose Route Start Last Admin Trade Name Freq PRN Reason Stop Dose Admin Acetaminophen 650 mg 04/26/22 18:58 Acetaminophen 325 Mg Tab PO Q4H PRN Pain, Mild (1-3) Amlodipine Besylate 10 mg 04/28/22 15:00 04/28/22 17:05 Amlodipine 10 Mg Tab PO 10 mg DAILY REMI Administration Aspirin 325 mg 04/27/22 10:00 04/28/22 09:33 Aspirin 325 Mg Tab PO 325 mg QDAY REMI Administration Atorvastatin Calcium 40 mg 04/26/22 22:00 04/28/22 21:00 Atorvastatin 40 Mg Tab PO 40 mg QHS REMI Administration Bisacodyl 10 mg 04/26/22 18:58 Bisacodyl 10 Mg Rect Supp [place] QDAY PRN Constipation Haloperidol Lactate 5 mg 04/26/22 15:03 Haloperidol Lactate 5 Mg/1 Ml Inj IM Q6HR PRN Agitation Hydralazine HCl 10 mg 04/28/22 00:30 04/28/22 01:11 Hydralazine 20 Mg/1 Ml Inj IV 10 mg Q6H PRN Administration Blood Pressure Hydromorphone HCl 0.5 mg 04/26/22 18:58 04/27/22 05:39 Hydromorphone 0.5 Mg/0.5 Ml Inj IV 0.5 mg Q23H PRN Administration Pain , Severe (7-10) Insulin Human Lispro 0 unit 04/27/22 22:00 04/28/22 21:10 Insulin Lispro 100 Unit/Ml SUB-Q 3 unit ACHS REMI Administration Protocol Lorazepam 2 mg 04/26/22 15:03 Lorazepam 2 Mg/Ml Vial IM Q4HR PRN Agitation Losartan Potassium 25 mg 04/28/22 15:00 04/28/22 17:07 Losartan 25 Mg Tab PO 25 mg QDAY REMI Administration Magnesium Hydroxide 30 ml 04/26/22 18:58 04/28/22 21:10 Magnesium Hydroxide (Mom) Oral Liqd Udc PO 30 ml Q4H PRN Administration Constipation Metoclopramide HCl 10 mg 04/26/22 18:58 Metoclopramide 10 Mg Tab PO Q6H PRN Nausea And Vomiting Naloxone HCl 0.1 mg 04/26/22 15:03 04/26/22 16:11 Naloxone 0.4 Mg/1 Ml Inj IV 0.1 mg Q2MIN PRN Administration Res Rate </= 8 or 02 SAT < 92% Ondansetron HCl 4 mg 04/26/22 18:58 Ondansetron 4 Mg/2 Ml Inj IV Q8H PRN Nausea And Vomiting Oxycodone/Acetaminophen 1 tab 04/26/22 18:58 04/28/22 20:57 Oxycodone /Acetaminophen 5-325mg Tab PO 1 tab Q6H PRN Administration Pain, Moderate (4-6) Promethazine HCl 25 mg 04/26/22 18:58 Promethazine 25 Mg Rect Supp [place] Q6H PRN Nausea And Vomiting Sodium Chloride 10 ml 04/26/22 18:58 04/28/22 21:00 Sodium Chloride 0.9% 10 Ml Flush Syringe IV 10 ml PRN PRN Administration LINE FLUSH Nutrition/Malnutrition Assess - Dietary Evaluation Nutrition/Malnutrition Findings: Nutrition Notes Start: 04/27/22 13:17 Freq: Status: Active Protocol: Document 04/27/22 13:17 PATI (Rec: 04/27/22 13:21 PATI [id number]) Nutrition Notes Need for Assessment generated from: solid waste engineer,MST Initial or Follow up Assessment Current Diagnosis Diabetes,Hypertension Other Pertinent Diagnosis CVA, metabolic encephalopathy Current Diet NPO Labs/Tests Reviewed Pertinent Medications Reviewed Height 5 ft 2 in Weight 76.204 kg Tiro Body Weight (kg) 50.00 BMI 30.7 Weight Status Obese Subjective/Other Information Pt screened for malnutrition risk. PMHx includes vascular dementia and cerebral atherosclerosis. Burn Absent Trauma Absent Skin Integrity/Comment No skin breakdown reported Minimum of two criteria No #1 Nutrition Diagnosis Inadequate oral intake Etiology recent CVA As Evidenced by Signs and Symptoms pt NPO Is patient on ventilator? No Is Patient Ambulatory and/or Out of Bed No REE-([facility]-confined to bed) 1488.156 Kcal/Kg value to use for calculation 16 Approximate Energy Requirements Using 1219 kcal/Kg Calculation Used for Recommendations Kcal/kg Additional Notes Pro needs 1-1.2g/kg adjBW: 63- 76g/day Fluid needs 1ml/kcal Nutrition Intervention Change Diet Order: Advance diet when medically feasible Goal #1 Diet advancement to meet nutrient needs Anticipated Discharge Needs: Heart-healthy, CHO-controlled diet Follow-Up By: 04/29/22 Additional Comments F/U: diet advancement
[2022-04-29] MEDS ORDERED: NON-FORMULARY EACH (Losartan Potassium [Losartan Potassium] 100 MG Tablet) PO SCH (10:00)
[2022-04-29] MEDS: ASPIRIN 325 MG TAB PO SCH (11:05)
[2022-04-29] MEDS: amLODIPine 10 MG TAB PO SCH (11:05)
[2022-04-29] MEDS: LOSARTAN 25 MG TAB PO SCH (11:06)
[2022-04-29] MEDS: CLOPIDOGREL 75 MG TAB PO SCH (11:06)
[2022-04-29] MEDS: oxyCODONE /ACETAMINOPHEN 5-325MG TAB PO PRN (20:59)
[2022-04-29] MEDS ORDERED: MORPHINE 4 MG/1 ML INJ IV PRN (21:04)
--- NOTE | 2022-04-29 22:24 | Progress Note ---
Subjective Date of service: 04/29/22 Interval history: NSGY update: CT scan reviewed, demonstrating right caudate lesion with mild vasogenic edema. There is mild mass effect on the right lateral ventricle. There is no hydrocephalus noted. Recommend admission to ICU for q1h neuro checks. Please obtain MRI brain with and without contrast to further evaluate the lesion. Please start keppra 1000 mg BID for treatment of new onset seizures. Continue medical management. Full consult note to follow. Please notify if questions/concerns. Objective - Vital Sign Vital Signs - 12hr 04/29/22 04/29/22 04/29/22 11:05 11:15 13:00 Temperature 98 F Pulse Rate 75 75 Respiratory 20 Rate Blood Pressure 157/62 Blood Pressure 157/64 [Right] O2 Sat by Pulse 100 96 Oximetry - Laboratory Findings CBC and BMP: 04/26/22 14:53 04/28/22 08:11 Abnormal Lab Findings: Abnormal Labs 04/26/22 04/26/22 04/26/22 14:11 14:53 14:53 [place] % (Auto) 9.9 H Sodium 80 L* Potassium 1.5 L* Chloride 60.0 L Carbon Dioxide 18 L BUN 27 H Glucose 173 H POC Glucose 227 H Phosphorus ALT < 5 L Alkaline Phosphatase < 5 L Albumin < 0.2 L TSH Salicylates Acetaminophen 04/26/22 04/26/22 04/26/22 14:53 14:53 14:53 [place] % (Auto) Sodium Potassium Chloride Carbon Dioxide BUN Glucose POC Glucose Phosphorus ALT Alkaline Phosphatase Albumin TSH 4.370 H Salicylates < 0.3 L Acetaminophen 5.0 L 04/26/22 04/27/22 04/28/22 16:50 22:02 07:18 [place] % (Auto) Sodium Potassium Chloride Carbon Dioxide BUN 28 H Glucose 128 H POC Glucose 133 H 164 H Phosphorus ALT Alkaline Phosphatase Albumin TSH Salicylates Acetaminophen 04/28/22 04/28/22 04/28/22 08:11 11:18 16:08 [place] % (Auto) Sodium Potassium 3.4 L Chloride Carbon Dioxide BUN 21 H Glucose 169 H POC Glucose 152 H 134 H Phosphorus 2.40 L ALT Alkaline Phosphatase Albumin 3.7 L TSH Salicylates Acetaminophen 04/28/22 04/29/22 04/29/22 21:06 08:11 11:41 [place] % (Auto) Sodium Potassium Chloride Carbon Dioxide BUN Glucose POC Glucose 164 H 152 H 205 H Phosphorus ALT Alkaline Phosphatase Albumin TSH Salicylates Acetaminophen 04/29/22 04/29/22 16:54 21:37 [place] % (Auto) Sodium Potassium Chloride Carbon Dioxide BUN Glucose POC Glucose 63 L 167 H Phosphorus ALT Alkaline Phosphatase Albumin TSH Salicylates Acetaminophen
[2022-04-30] MEDS: hydrALAZINE 20 MG/1 ML INJ IV PRN (05:38)
[2022-04-30] MEDS: INSULIN LISPRO 100 UNIT/ML SUB-Q SCH ×2 (07:30→11:30)
[2022-04-30] MEDS: ASPIRIN 325 MG TAB PO SCH (09:22)
[2022-04-30] MEDS: amLODIPine 10 MG TAB PO SCH (09:23)
[2022-04-30] MEDS: CLOPIDOGREL 75 MG TAB PO SCH (09:23)
[2022-04-30] MEDS: LOSARTAN 25 MG TAB PO SCH (09:23)
--- NOTE | 2022-04-30 11:54 | Electrocardiograph Report ---
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
[2022-04-30 12:25] VITALS: BP 141/88
[2022-04-30] MEDS: oxyCODONE /ACETAMINOPHEN 5-325MG TAB PO PRN (12:31)
--- NOTE | 2022-04-30 13:06 | Discharge Summary ---
Providers - Providers Date of Admission: 04/26/22 18:58 Date of discharge: 04/30/22 Attending physician: BRYAN BRAY 04/26/22 18:58 Occupational Therapy Evaluate and Treat [CONS] Routine Comment: Reason For Exam: Neuro deficits Physical Therapy Evaluation and Treat [CONS] Routine Comment: Reason For Exam: Neuro deficits 04/26/22 19:51 Consult to Physician [CONS] Routine Comment: Consulting Provider: DEE ROY II Physician Instructions: Reason For Exam: cva 04/28/22 12:28 Speech Therapy Evaluation and Treat [CONS] Urgent Reason For Exam: s/p stroke 04/28/22 15:00 Consult to Physician [CONS] Routine Comment: Consulting Provider: JOCELIN ORTEGA Physician Instructions: Reason For Exam: Acute CVA Primary care physician: FISH FARM MANAGER Hospitalization Condition: Fair Disposition: HOME HEALTH CARE SERVICE Core Measure Documentation - Palliative Care Palliative Care/ Comfort Measures: Not Applicable - Core Measures Any of the following diagnoses?: none Exam - Constitutional Vitals: Temp Pulse Resp BP Pulse Ox 98.5 F 95 H 22 141/88 100 04/30/22 12:10 04/30/22 12:10 04/30/22 12:10 04/30/22 12:10 04/30/22 12:10 General appearance: Present: no acute distress, well-nourished - EENT Eyes: Present: PERRL, EOM intact - Neck Neck: Present: supple, normal ROM - Respiratory Respiratory effort: normal Respiratory: bilateral: diminished, negative: rales, rhonchi, wheezing - Cardiovascular Rhythm: regular Heart Sounds: Present: S1 & S2 - Extremities Extremities: no ischemia, No edema - Abdominal General gastrointestinal: Present: soft, non-tender, non-distended, normal bowel sounds - Integumentary Integumentary: Present: clear, warm - Musculoskeletal Musculoskeletal: strength equal bilaterally - Psychiatric Psychiatric: appropriate mood/affect, cooperative - Neurologic Neurologic: CNII-XII intact, moves all extremities Plan Activity: advance as tolerated, fall precautions Diet: other (cardiac diet ) Special Instructions: physical therapy Additional Instructions: Fall precautions. Advised to follow primary care physician in [address] Ibarra in 1 to 2 weeks. See private helicopter pilot Dr. Shaver [[facility]] for Holter wool cleaner to rule out paroxysmal A. fib/flutter. If you have worsening symptoms contact MD or go to the nearest emergency room as needed Follow up with: PRIMARY CARE, [Primary Care Provider] - 3-5 Days EDGAR IBARRA MD [Staff Physician] - 7 Days ERNESTO SHAVER MD [Staff Physician] - 7 Days Prescriptions: Losartan [Cozaar] 25 mg PO QDAY #30 tablet bisacodyL [Dulcolax tab] 10 mg PO DAILY PRN #14 tab PRN Reason: Constipation Aspirin EC [Halfprin EC] 81 mg PO QDAY #30 tablet. AtorvaSTATin [Lipitor] 40 mg PO QHS #30 tablet Clopidogrel [Plavix] 75 mg PO QDAY #30 tablet
[2022-04-30 14:38] LABS: Chol/HDL Ratio 3.14 %
== END 2022-04-30 16:25 | disposition home health service (06) | DRG 64 ==
LOC: ED 14:09 → 3A 18:58
PROVIDERS: ADMIT Internal Medicine; ATTEND Internal Medicine
DX: I63.9 Cerebral infarction, unspecified (principal); G93.41 Metabolic encephalopathy; E87.1 Hypo-osmolality and hyponatremia; E87.2 Acidosis; I10 Essential (primary) hypertension; E11.9 Type 2 diabetes mellitus without complications; F17.200 Nicotine dependence, unspecified, uncomplicated; F01.50 Vascular dementia, unspecified severity, without behavioral disturbance, psychotic disturbance, mood disturbance, and anxiety; I67.2 Cerebral atherosclerosis; E88.81 Metabolic syndrome and other insulin resistance; E66.01 Morbid (severe) obesity due to excess calories; Z68.30 Body mass index [BMI] 30.0-30.9, adult; E78.5 Hyperlipidemia, unspecified; R56.9 Unspecified convulsions; R55 Syncope and collapse; R26.81 Unsteadiness on feet; Z83.3 Family history of diabetes mellitus; Z82.49 Family history of ischemic heart disease and other diseases of the circulatory system; Z90.49 Acquired absence of other specified parts of digestive tract
CPT/HCPCS: 36415; 70450; 70553; 71045; 80053; 80061; 80307; 80320; 81001; 82140; 82962; 83735; 84100; 84439; 84443; 84484; 85025; 85610; 85730; 87086; 93005; 93306; 93880; 95819; G0378; Q9967; A9575; C8929; G0480; J0360; J1170; J1815; J2310; J2405